=== PATIENT | male | born 1960 | race Caucasian/White ===

== ENCOUNTER → 2020-09-11 08:32 | Outpatient (BNVA) | payer BC, SELFPAY | PROVIDERS: PCP Orthopaedic Surgery; Referring Provider Orthopaedic Surgery; Visit Provider Internal Medicine Gastroenterology | DX: Z76.89 Persons encountering health services in other specified circumstances (principal) ==

== ENCOUNTER 2024-03-13 09:00 | Outpatient (AMB) | payer MEDICARE, MEDICAID, SELFPAY ==
[2024-03-13 09:02] VITALS: BP 112/64; PULSE 66; O2SAT 98; BMI 32.3
--- NOTE | 2024-03-13 09:02 | HO.NEPHOV ---
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 Roberto Carlos is a pleasant 64-year-old man referred for elevated serum creatinine. In 02/19/2024 serum creatinine was 1.4 mg/dL with a EGFR of 51 mL/minute. In the past serum creatinine was 1.3 mg/dL in December and in 2022 serum creatinine was 0.8 mg/dL. There has been no new medications added in the recent times. He has been on irbesartan 75 mg for the last several years. Does not take any NSAIDs. Overall blood pressure has been well controlled. No hypotensive episodes He has a history of diabetes mellitus and recent A1c was 7.8%. He is currently on Januvia metformin and Jardiance. Recent urine studies did not reveal any significant proteinuria. He has no urinary symptoms other than increased frequency. No polyuria polydipsia. He has been on tamsulosin for quite some time but does not have a history of BPH. If he has a history of coronary artery disease and underwent a stent placement back in 2004. In 2020 he had a defibrillator inserted. He has a history of smoking more than 1 pack per day. He quit smoking in 2004. Currently smoking very few cigarettes. No history of any alcohol abuse. There is a strong family history of coronary disease. No family history of kidney disease. [facility] Surgical History Hx of heart artery stent Hx of neck surgery Hx of foot surgery Hx of endoscopy History of colonoscopy Family History Father Hx of cancer of lung History of heart attack Mother History of cancer Brother Hx of type 1 diabetes mellitus Hx of bladder cancer History of prostate cancer Sister Hx of breast cancer Sister History of lung or bronchial cancer Social History Alcohol intake: current Alcohol intake frequency: a few times a month Cigarettes Per Day: 10 Review of Systems Const Denies fever(s) and Denies weight loss Card Denies chest pain Resp Denies cough and Denies hemoptysis GI Denies abdominal pain, Denies diarrhea and Denies nausea Musc Denies back pain Neuro Denies focal weakness Physical Exam Vital Signs: Last Vital Signs Pulse 66 03/13/24 09:02 BP 112/64 03/13/24 09:02 Pulse Ox 98 03/13/24 09:02 Oxygen Delivery Method Room Air 03/13/24 09:02 BMI result Body Mass Index 32.3 Const General: comfortable; No acute distress Orientation/consciousness: patient oriented x3 Eyes General: appearance normal, both eyes and all related structures Visual Colindres: normal visual colindres by confrontation Neck Neck: Yes supple and Yes no JVD Resp Effort & Inspection: normal respiratory effort and respiratory effort not decreased Auscultation: rhonchi Cardio Palpation: no palpable S3 and no palpable S4 Heart sounds: no rubs GI Inspection: Yes normal to inspection Palpation (GI): Soft to palpation Percussion: Yes normal to percussion Auscultation: normal bowel sounds General: Yes no CVA tenderness Back/Spine/Pelvis Back: no CVA tenderness Skin General skin exam: no petechiae and no purpura Neuro General: patient oriented x3 and no focal motor deficits Extrem General: No clubbing and No edema Results Reviewed Results Reviewed: February 29, 2024. Sodium 139 potassium 4.7 BUN 23 creatinine 1.41 EGFR 56 mL/minute Urine microalbumin creatinine ratio of 11 Nephrology Results: No Data to Display Assessment & Plan Assessment & Plan (1) CKD (chronic kidney disease): Code(s): N18.9 - Chronic kidney disease, unspecified Category: Medical Plan . Roberto Carlos is a 60-year-old man with a history of longstanding diabetes mellitus and coronary disease with a recent elevation serum creatinine. Recent serum creatinine has been around 0.8-0.9 mg/dL up until 2022. Over the last few months serum creatinine is bumped up to 1.4 mg/dL. He has no significant proteinuria. Recent urine sediments were bland. Differential diagnosis would include hypoperfusion. Obstructive uropathy should be ruled out. No reason to believe that he has any active glomerulonephritis or interstitial disease. Plan Keep current medications for now. Agree with Jardiance for cardiorenal protection. Along with low-dose ARB. Check 24 urine collection for creatinine clearance. Check renal ultrasonogram. Encouraged to stay on low-sodium diet and increase p.o. fluid intake. Continue to avoid nephrotoxic agents including NSAIDs. He will return to the office once the baseline workup is completed. Orders: Orders Creatinine, 24 Hr Group Today N18.9 - Chronic kidney disease, unspecified Creatinine Clearance Urine 24U Today N18.9 - Chronic kidney disease, unspecified Sodium Urine Random 2 Weeks N18.9 - Chronic kidney disease, unspecified Comprehensive Met. Panel Today N18.9 - Chronic kidney disease, unspecified Creatinine Urine Today N18.9 - Chronic kidney disease, unspecified Total Protein Urine Random Today N18.9 - Chronic kidney disease, unspecified UA and rflx microscopic Today N18.9 - Chronic kidney disease, unspecified US renal BI Today N18.9 - Chronic kidney disease, unspecified Coding Level of Care Code New Pt Level 4 (34508) Diagnoses CKD (chronic kidney disease) N18.9
== END 2024-03-13 09:43 | disposition home or self-care (01) ==
PROVIDERS: PCP Nurse Practitioner Family; Referring Provider Nurse Practitioner Family; Visit Provider Internal Medicine Hypertension Specialist
DX: N18.9 Chronic kidney disease, unspecified (principal)
CPT/HCPCS: 99204

== ENCOUNTER → 2024-03-13 09:00 | Outpatient (BNVA) | payer MEDICARE, MEDICAID, SELFPAY | PROVIDERS: PCP Nurse Practitioner Family; Referring Provider Nurse Practitioner Family; Visit Provider Internal Medicine Hypertension Specialist | DX: N18.9 Chronic kidney disease, unspecified (principal) | CPT/HCPCS: 99202 ==

== ENCOUNTER 2024-03-18 12:15 | Outpatient (REF) | payer MEDICARE, MEDICAID, SELFPAY ==
--- NOTE | ~2024-03-18 | US_ITS ---
EXAMINATION: US RETROPERITONEAL LIMITED (RENAL ONLY) CLINICAL INFORMATION: Chronic kidney disease, unspecified. COMPARISON: None available. TECHNIQUE: Real-time imaging of the kidneys. FINDINGS: RIGHT KIDNEY: 11.6 x 5.3 x 5.1 cm (SAG x AP x TRV). The kidney is normal in size, contour, and echogenicity. Renal cortical thickness is normal. No renal calculi or focal parenchymal lesions. There is moderate to severe hydronephrosis, not associated with nephrolithiasis. Partially visualized proximal ureter is dilated to also, measured 1.2 cm distally. LEFT KIDNEY: 11.0 x 6.8 x 6.2 cm (SAG x AP x TRV). The kidney is normal in size, contour, and echogenicity. Renal cortical thickness is normal. No renal calculi or focal parenchymal lesions. There is mild to moderate hydronephrosis with dilated ureter, measured 1.5 cm distally ADDITIONAL FINDINGS: Urinary bladder is overdistended with jets visualized bilaterally and small calculi in the dependent portion of the bladder US/US renal BI IMPRESSION: Bilateral hydroureteronephrosis and over distended urinary bladder with urolithiasis
== END 2024-03-18 12:16 | disposition home or self-care (01) ==
LOC: HO.US 12:15
PROVIDERS: PCP Nurse Practitioner Family; Visit Provider Internal Medicine Hypertension Specialist
DX: N18.9 Chronic kidney disease, unspecified (principal)
CPT/HCPCS: 76775

== ENCOUNTER 2024-03-20 10:06 | Outpatient (REF) | payer MEDICARE, MEDICAID, SELFPAY ==
[2024-03-20 18:20] LABS: Appearance Urine Clear; Color Urine Yellow; Glucose Urine UA >=1000 mg/dL (Negative); Leukocyte Esterase Urine Negative (Negative); Nitrite Urine Negative (Negative); PH 5.5 (5.0-9.0); UMIC TRIGGER UA YES; Urine Blood Negative (Negative); Urine Ketones Negative (Negative); Urine Protein Negative (Neg-Trace)
[2024-03-20 18:23] LABS: Bacteria Urine None Seen (None Seen); Hyaline Casts Urine 0-2 /LPF (0-2); RBC Urine 0-2 /HPF (0-2); Squamous Epithelial Cell Urine 0-2 /HPF (0-2); WBC Urine 0-5 /HPF (0-5)
[2024-03-20 18:31] LABS: Alanine Aminotransferase 21 U/L (0-40); Albumin Level 4.4 g/dL (3.5-5.0); Alkaline Phosphatase 137 U/L (39-117); Anion Gap 11 (12-20); Aspartate Amino Transferase 15 U/L (5-37); Bilirubin Total 0.4 mg/dL (0.0-1.0); Blood Urea Nitrogen 25 mg/dL (9-16); Calcium 9.7 mg/dL (8.4-10.2); Carbon Dioxide 26 mmol/L (22-29); Chloride 108 mmol/L (96-108); Estimated Glomerular Filt Rate 46; Glucose Random 205 mg/dL (60-115); Potassium 4.2 mmol/L (3.3-5.1); Sodium 141 mmol/L (135-145)
[2024-03-20 18:59] LABS: Creatinine Urine 36.81 mg/dL; Total Protein Urine Random < 7 mg/dL (<12)
[2024-03-20 19:42] LABS: Creatinine, mg/dL 39.11
[2024-03-20 19:53] LABS: Creatinine, 24Hr Urine 1.2 G/Day (1.0-2.0); Total Volume 24 Hour Urine 3100 mL
[2024-03-20 19:54] LABS: Creatinine (CrCl) 1.53 mg/dL (0.5-1.4)
== END 2024-03-20 10:07 | disposition home or self-care (01) ==
LOC: HO.HKASLDS 10:06
PROVIDERS: Visit Provider Internal Medicine Hypertension Specialist
DX: N18.9 Chronic kidney disease, unspecified (principal)
CPT/HCPCS: 36415; 80053; 81001; 82570; 82575; 84156; 84300

== ENCOUNTER 2024-04-03 08:35 | Outpatient (AMB) | payer MEDICARE, MEDICAID, SELFPAY ==
[2024-04-03 08:37] VITALS: BP 152/80; PULSE 68; O2SAT 98; BMI 32.6
--- NOTE | 2024-04-03 08:37 | HO.NEPHOV ---
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 Roberto Carlos is a pleasant 64-year-old man referred for elevated serum creatinine. In 02/19/2024 serum creatinine was 1.4 mg/dL with a EGFR of 51 mL/minute. In the past serum creatinine was 1.3 mg/dL in December and in 2022 serum creatinine was 0.8 mg/dL. There has been no new medications added in the recent times. He has been on irbesartan 75 mg for the last several years. Does not take any NSAIDs. Overall blood pressure has been well controlled. No hypotensive episodes He has a history of diabetes mellitus and recent A1c was 7.8%. He is currently on Januvia metformin and Jardiance. Recent urine studies did not reveal any significant proteinuria. He has no urinary symptoms other than increased frequency. No polyuria polydipsia. He has been on tamsulosin for quite some time but does not have a history of BPH. If he has a history of coronary artery disease and underwent a stent placement back in 2004. In 2020 he had a defibrillator inserted. He has a history of smoking more than 1 pack per day. He quit smoking in 2004. Currently smoking very few cigarettes. No history of any alcohol abuse. There is a strong family history of coronary disease. No family history of kidney disease. 04/03/2024. Roberto Carlos is here for follow-up. Underwent a workup as outlined. Recent creatinine was 1.56. Twenty-four urine collection did not reveal any significant proteinuria. Renal ultrasonogram was done It is not reported yet. I reviewed the images. He is having increased urinary frequency and says that this has been going on for a year. PFSH Surgical History Hx of heart artery stent Hx of neck surgery Hx of foot surgery Hx of endoscopy History of colonoscopy Family History Father Hx of cancer of lung History of heart attack Mother History of cancer Brother Hx of type 1 diabetes mellitus Hx of bladder cancer History of prostate cancer Sister Hx of breast cancer Sister History of lung or bronchial cancer Social History Alcohol intake: current Alcohol intake frequency: a few times a month Cigarettes Per Day: 10 Physical Exam Vital Signs: Last Vital Signs Pulse 68 04/03/24 08:37 BP 152/80 H 04/03/24 08:37 Pulse Ox 98 04/03/24 08:37 Oxygen Delivery Method Room Air 04/03/24 08:37 BMI result Body Mass Index 32.6 Const General: comfortable; No acute distress Orientation/consciousness: patient oriented x3 Eyes General: appearance normal, both eyes and all related structures Visual Magaña: normal visual magaña by confrontation Neck Neck: Yes supple and Yes no JVD Resp Effort & Inspection: normal respiratory effort and respiratory effort not decreased Auscultation: rhonchi Cardio Palpation: no palpable S3 and no palpable S4 Heart sounds: no rubs GI Inspection: Yes normal to inspection Palpation (GI): Soft to palpation Percussion: Yes normal to percussion Auscultation: normal bowel sounds General: Yes no CVA tenderness Back/Spine/Pelvis Back: no CVA tenderness Skin General skin exam: no petechiae and no purpura Neuro General: patient oriented x3 and no focal motor deficits Extrem General: No clubbing and No edema Results Reviewed Nephrology Results: Sodium 141 mmol/L (135-145) 03/20/24 Potassium 4.2 mmol/L (3.3-5.1) 03/20/24 Chloride 108 mmol/L (96-108) 03/20/24 Carbon Dioxide 26 mmol/L (22-29) 03/20/24 BUN 25 mg/dL (9-16) H 03/20/24 Creatinine 1.53 mg/dL (0.5-1.4) H 03/20/24 Calcium 9.7 mg/dL (8.4-10.2) 03/20/24 Urine Protein Negative mg/dL (Neg-Trace) 03/20/24 Urine Creatinine 36.81 mg/dL 03/20/24 Renal US 03/18/24 Assessment & Plan Assessment & Plan (1) CKD (chronic kidney disease): Code(s): N18.9 - Chronic kidney disease, unspecified Category: Medical (2) Hydronephrosis: Code(s): N13.30 - Unspecified hydronephrosis Category: Medical Plan . Roberto Carlos is a 60-year-old man with a history of longstanding diabetes mellitus and coronary disease with a recent elevation serum creatinine. Recent serum creatinine has been around 0.8-0.9 mg/dL up until 2022. Over the last few months serum creatinine is bumped up to 1.4 mg/dL. He has no significant proteinuria. Twenty-four urine collection did not reveal any proteinuria Recent urine sediments were bland. Renal ultrasonogram reveals evidence of hydronephrosis. He has underlying obstructive uropathy. No reason to believe that he has any active glomerulonephritis or interstitial disease. Plan Keep current medications for now. Agree with Jardiance for cardiorenal protection. Along with low-dose ARB. Referred to Urology [facility] for further evaluation. Continue tamsulosin Encouraged to stay on low-sodium diet and increase p.o. fluid intake. Continue to avoid nephrotoxic agents including NSAIDs. Orders: Orders Basic Metabolic Panel 6 Weeks N13.30 - Unspecified hydronephrosis, N18.9 - Chronic kidney disease, unspecified Referrals Urology Referral N13.30 - Unspecified hydronephrosis, R31.9 - Hematuria, unspecified Coding Level of Care Code Est Pt Level 4 (55706) Diagnoses CKD (chronic kidney disease) N18.9 Hydronephrosis N13.30
[2024-04-03 10:38] VITALS: BP 134/70
== END 2024-04-03 11:08 | disposition home or self-care (01) ==
PROVIDERS: PCP Nurse Practitioner Family; Visit Provider Internal Medicine Hypertension Specialist
DX: N18.9 Chronic kidney disease, unspecified (principal); N13.30 Unspecified hydronephrosis
CPT/HCPCS: 99214

== ENCOUNTER → 2024-04-03 08:35 | Outpatient (BNVA) | payer MEDICARE, MEDICAID, SELFPAY | PROVIDERS: PCP Nurse Practitioner Family; Visit Provider Internal Medicine Hypertension Specialist | DX: E11.22 Type 2 diabetes mellitus with diabetic chronic kidney disease (principal); N13.30 Unspecified hydronephrosis; R31.9 Hematuria, unspecified; Z79.84 Long term (current) use of oral hypoglycemic drugs | CPT/HCPCS: 99212 ==

== ENCOUNTER 2024-04-08 13:19 | Outpatient (AMB) | payer MEDICARE, MEDICAID, SELFPAY ==
--- NOTE | 2024-04-08 13:21 | MHC.OFFVIS ---
Intake Visit Reasons: Hematuria Intake Note: Patient is present for hydronephrosis Urology Medication:tamsulosin Antibiotic Allergy:none Blood Thinner:aspirin General Freight Agent Required: No Allergies No Known Allergies [No Known Allergies*] Allergy (Verified 04/08/24 13:22) Medication List - Last Reconciled 04/08/24 by Yossi Yu MD aspirin 81 mg PO DAILY atorvastatin 80 mg PO DAILY diazepam (Valium) 5 mg PO ONCE empagliflozin (Jardiance) 25 mg PO QAM irbesartan 75 mg PO DAILY metformin ER 500 mg PO DAILY metoprolol succinate ER 25 mg PO DAILY tamsulosin 0.4 mg PO DAILY HPI Comments Details: Roberto Carlos is a 64-year-old male who was seen by Nephrology due to rising serum creatinine. He was sent for renal ultrasound resulting in bilateral hydronephrosis. Renal US 03/18/24--B/L hydro, no renal calculi, Urinary bladder is overdistended with jets visualized bilaterally and small calculi in the dependent portion of the bladder. The patient has lower urinary tract symptoms of urinary frequency and nocturia. He states he has had episodes of uncontrolled urinary leakage at night. I have discussed that there are urinary conditions that affect voiding function including bladder spasms, outlet obstruction, as well as hypotonic bladder. He denies dysuria or pain with urination. Comorbidity diabetes, Nicotine dependence. I have discussed further evaluation with CT abdomen and pelvis without IV contrast in follow-up office cystoscopy, PSA screening. Consideration for Urodynamics in the future discussed. [facility] Surgical History Hx of heart artery stent Hx of neck surgery Hx of foot surgery Hx of endoscopy History of colonoscopy Family History Father Hx of cancer of lung History of heart attack Mother History of cancer Brother Hx of type 1 diabetes mellitus Hx of bladder cancer History of prostate cancer Sister Hx of breast cancer Sister History of lung or bronchial cancer Social History Alcohol intake: current Alcohol intake frequency: a few times a month Cigarettes Per Day: 10 Review of Systems Const All systems reviewed & are unremarkable except as noted in HPI and below Reports no additional complaints Eyes Reports no additional complaints ENT Reports no additional complaints Card Reports no additional complaints Resp Reports no additional complaints GI Reports no additional complaints Reports as per HPI Musc Reports no additional complaints Skin/Breast Reports system reviewed and no additional complaints, except as documented Neuro Reports no additional complaints Psych Reports no additional complaints Endo Reports no additional complaints Evan/Lymph Reports no additional complaints Aller/Immun Reports no additional complaints Physical Exam Const General: healthy appearing, no acute distress and well developed Orientation/consciousness: patient oriented x3 HEENT Head: Yes normocephalic and Yes atraumatic Eyes Conjunctivae: conjunctivae normal Neck Neck: Yes normal visual inspection Chest Chest palpation & inspection: normal inspection of the chest Resp Effort & Inspection: normal respiratory effort Cardio Rate: regular rate GI Inspection: Yes normal to inspection Neuro General: patient oriented x3 Psych Appearance: grossly normal Affect: normal affect Results AMB Urinalysis, Automated UA Leukoctes 0 Marsha/uL Last Edit by Shanae Eugene [facility] on 04/08/24 13:33 UA Nitrite Negative Last Edit by Shanae Eugene [facility] on 04/08/24 13:33 UA Urobilinogen 0.2 mg/dL Last Edit by Shanae Eugene [facility] on 04/08/24 13:33 UA Protein 0 mg/dL Last Edit by Shanae Eugene [facility] on 04/08/24 13:33 UA pH 6.0 Last Edit by Shanae Eugene [facility] on 04/08/24 13:33 UA Blood 0 Bam/uL Last Edit by Shanae Eugene [facility] on 04/08/24 13:33 UA Specific [place] 1.010 Last Edit by Shanae Eugene [facility] on 04/08/24 13:33 UA Ketone Negative Last Edit by Shanae Eugene [facility] on 04/08/24 13:33 UA Bilirubin 0 mg/dL Last Edit by Shanae Eugene [facility] on 04/08/24 13:33 UA Glucose 1000 mg/dL Last Edit by Shanae Eugene [facility] on 04/08/24 13:33 Results Reviewed Results Reviewed: Laboratory Last Values Urine pH (Auto) 6.0 04/08/24 13:32 Specific [place] (Auto) 1.010 07/08/24 13:32 Urine Protein (Auto) 0 mg/dL 04/08/24 13:32 Glucose (UA)(Auto) 1000 mg/dL 04/08/24 13:32 Urine Ketones (Auto) Negative 04/08/24 13:32 Urine Blood (Auto) 0 Bam/uL 04/08/24 13:32 Urine Nitrite (Auto) Negative 04/08/24 13:32 Urine Bilirubin (Auto) 0 mg/dL 04/08/24 13:32 Urine Urobilinogen (Auto) 0.2 mg/dL 04/08/24 13:32 Leukocyte Esterase (Auto) 0 Marsha/uL 04/08/24 13:32 Date of Service: 03/18/24 EXAMINATION: US RETROPERITONEAL LIMITED (RENAL ONLY) CLINICAL INFORMATION: Chronic kidney disease, unspecified. COMPARISON: None available. TECHNIQUE: Real-time imaging of the kidneys. FINDINGS: RIGHT KIDNEY: 11.6 x 5.3 x 5.1 cm (SAG x AP x TRV). The kidney is normal in size, contour, and echogenicity. Renal cortical thickness is normal. No renal calculi or focal parenchymal lesions. There is moderate to severe hydronephrosis, not associated with nephrolithiasis. Partially visualized proximal ureter is dilated to also, measured 1.2 cm distally. LEFT KIDNEY: 11.0 x 6.8 x 6.2 cm (SAG x AP x TRV). The kidney is normal in size, contour, and echogenicity. Renal cortical thickness is normal. No renal calculi or focal parenchymal lesions. There is mild to moderate hydronephrosis with dilated ureter, measured 1.5 cm distally ADDITIONAL FINDINGS: Urinary bladder is overdistended with jets visualized bilaterally and small calculi in the dependent portion of the bladder IMPRESSION: Bilateral hydroureteronephrosis and over distended urinary bladder with urolithiasis Assessment & Plan Assessment & Plan (1) Hydronephrosis: Code(s): N13.30 - Unspecified hydronephrosis Category: Medical (2) BPH loc w urin obs/LUTS: Code(s): N40.1 - Benign prostatic hyperplasia with lower urinary tract symptoms Category: Medical (3) Nicotine dependence: Code(s): F17.200 - Nicotine dependence, unspecified, uncomplicated Category: Medical (4) Urinary incontinence: Code(s): R32 - Unspecified urinary incontinence Category: Medical Plan CT abd/pelvis wo IV contrast, fu cysto, PSA screening. Orders: Orders PSA,Total (Free>4and<10) Today N40.1 - Benign prostatic hyperplasia with lower urinary tract symptoms CT abdomen pelvis wo IV con Today N13.30 - Unspecified hydronephrosis AMB Urinalysis Automated Today Z13.9 - Encounter for screening, unspecified Medications: New diazepam (Valium) 5 mg PO ONCE 1 tab 0RF take 30 min to 1 hour prior to office procedure Patient Instructions: The patient had an opportunity to ask questions regarding treatment plan. The patient expressed understanding and agreement with the above treatment plan. The patient is aware they should contact our office by phone for worsening of their current condition or the appearance of new symptoms. Compliance is encouraged with any medications and followup testing that is ordered. It is a privilege to be allowed the opportunity to participate in the urologic care of your patient. If you have any questions or concerns regarding treatment for the above conditions please do not hesitate to contact me. The office telephone contact is [phone]. This note is constructed in part using voice recognition software. While every effort has been made to ensure accuracy story editor errors may have been included. Yours sincerely, Yossi Yu MD Coding Level of Care Code New Pt Level 4 (39845) Diagnoses Hydronephrosis N13.30 BPH loc w urin obs/LUTS N40.1 Nicotine dependence F17.200 Urinary incontinence R32
== END 2024-04-08 14:16 | disposition home or self-care (01) ==
PROVIDERS: PCP Nurse Practitioner Family; Visit Provider Urology
DX: N13.30 Unspecified hydronephrosis (principal); N40.1 Benign prostatic hyperplasia with lower urinary tract symptoms; F17.200 Nicotine dependence, unspecified, uncomplicated; R32 Unspecified urinary incontinence; Z13.9 Encounter for screening, unspecified
CPT/HCPCS: 99204

== ENCOUNTER → 2024-04-08 13:19 | Outpatient (BNVA) | payer MEDICARE, MEDICAID, SELFPAY | PROVIDERS: PCP Nurse Practitioner Family; Visit Provider Urology | DX: N13.30 Unspecified hydronephrosis (principal); N40.1 Benign prostatic hyperplasia with lower urinary tract symptoms; N13.8 Other obstructive and reflux uropathy; F17.210 Nicotine dependence, cigarettes, uncomplicated | CPT/HCPCS: 81003; 99202 ==

== ENCOUNTER 2024-05-20 16:12 | Outpatient (REF) | payer MEDICARE, MEDICAID, SELFPAY ==
--- NOTE | ~2024-05-20 | CT_ITS ---
EXAMINATION: CT ABDOMEN AND PELVIS WITHOUT IV CONTRAST CLINICAL INFORMATION: Hydronephrosis COMPARISON: Renal ultrasound March 18, 2024 TECHNIQUE: Multiple axial images were obtained from the superior aspect of the liver through the pubic symphysis without intravenous contrast. Images were evaluated on independent dedicated 3-D workstation and 3-D images were reconstructed with concurrent radiologist supervision and subsequently interpreted. Oral contrast was not administered. This CT examination was performed using dose optimization techniques as appropriate, variously including the following: *Automated exposure control *Adjustment of mA and/or kV according to patient size (this includes techniques or standardized protocols for targeted exams where dose is matched to indication/reason for exam; i.e. extremities or head) *Use of iterative reconstruction technique DLP: 546 mGy-cm FINDINGS: LUNG BASES: The visualized lung bases are clear. CARDIOMEDIASTINUM: The visualized heart is normal in size without pericardial effusion. No coronary artery calcification. LIVER: Homogeneous in attenuation. Normal in size. GALLBLADDER: Collapsed. BILIARY SYSTEM: No intrahepatic or extrahepatic biliary dilation. PANCREAS: Homogeneous in attenuation. SPLEEN: Normal in size. GENITOURINARY: No contour deforming masses. No perinephric fluid collection. No renal calculi. Bilateral moderate hydroureteronephrosis with severely fluid filled and distended urinary bladder. ADRENAL GLANDS: Unremarkable. REPRODUCTIVE: Prostatomegaly measuring 5.5 x 5.1 x 6.5 cm. GASTROINTESTINAL: The visualized alimentary tract is normal in course. Diverticular disease. No evidence of obstruction. APPENDIX: The appendix is seen in its entirety and is unremarkable. PERITONEUM: No pneumoperitoneum. No intra-abdominal fluid collection. VASCULATURE: No abdominal aortic aneurysm. LYMPH NODES: No pathologically enlarged abdominal or pelvic lymph nodes. SOFT TISSUES/MUSCULOSKELETAL: There is no acute fracture or significant focal osseous lesion. CT/CT abdomen pelvis wo IV con IMPRESSION: Moderate bilateral hydroureteronephrosis secondary to severely fluid filled distended urinary bladder. These findings are concerning for bladder outlet obstruction the setting of prostatomegaly. Fleischner guidelines were followed. Electronically signed by: Denzel oMrton DO 06/03/2024 11:19 PM EDT
== END 2024-05-20 16:13 | disposition home or self-care (01) ==
LOC: HO.CT 16:12
PROVIDERS: PCP Nurse Practitioner Family; Visit Provider Urology
DX: N13.30 Unspecified hydronephrosis (principal)
CPT/HCPCS: 74176

== ENCOUNTER 2024-05-24 10:35 | Outpatient (AMB) | payer MEDICARE, MEDICAID, SELFPAY ==
[2024-05-24 10:37] VITALS: BP 130/72; PULSE 89; O2SAT 89; BMI 31.8
--- NOTE | 2024-05-24 10:37 | HO.NEPHOV ---
Vital Signs 05/24/24 10:37 Height 5 ft 5 in Weight 191 lb BMI 31.8 BP 130/72 Blood Pressure Location Lt brachial Position Sitting Pulse 89 Pulse Source Pulse Oximeter Pulse Oximetry (%) 89 L Oxygen Delivery Method Room Air Intake Visit Reasons: 7-8 wk follow up- Conf Design Quality Engineer Required: No Accompanied by: Spouse Allergies No Known Allergies [No Known Allergies*] Allergy (Verified 05/24/24 10:39) HPI Comments Details: . Roberto Carlos is a pleasant 64-year-old man referred for elevated serum creatinine. In 02/19/2024 serum creatinine was 1.4 mg/dL with a EGFR of 51 mL/minute. In the past serum creatinine was 1.3 mg/dL in December and in 2022 serum creatinine was 0.8 mg/dL. There has been no new medications added in the recent times. He has been on irbesartan 75 mg for the last several years. Does not take any NSAIDs. Overall blood pressure has been well controlled. No hypotensive episodes He has a history of diabetes mellitus and recent A1c was 7.8%. He is currently on Januvia metformin and Jardiance. Recent urine studies did not reveal any significant proteinuria. He has no urinary symptoms other than increased frequency. No polyuria polydipsia. He has been on tamsulosin for quite some time but does not have a history of BPH. If he has a history of coronary artery disease and underwent a stent placement back in 2004. In 2020 he had a defibrillator inserted. He has a history of smoking more than 1 pack per day. He quit smoking in 2004. Currently smoking very few cigarettes. No history of any alcohol abuse. There is a strong family history of coronary disease. No family history of kidney disease. 04/03/2024. Roberto Carlos is here for follow-up. Underwent a workup as outlined. Recent creatinine was 1.56. Twenty-four urine collection did not reveal any significant proteinuria. Renal ultrasonogram was done It is not reported yet. I reviewed the images. He is having increased urinary frequency and says that this has been going on for a year. 05/23/24 Seen by for bradley hydro Underwent CT scan Waiting for Cysto No nichols catheter yet ? [facility] Surgical History Hx of heart artery stent Hx of neck surgery Hx of foot surgery Hx of endoscopy History of colonoscopy Family History Father Hx of cancer of lung History of heart attack Mother History of cancer Brother Hx of type 1 diabetes mellitus Hx of bladder cancer History of prostate cancer Sister Hx of breast cancer Sister History of lung or bronchial cancer Social History Alcohol intake: current Alcohol intake frequency: a few times a month Cigarettes Per Day: 10 Physical Exam Vital Signs: Last Vital Signs Pulse 89 05/24/24 10:37 BP 130/72 05/24/24 10:37 Pulse Ox 89 L 05/24/24 10:37 Oxygen Delivery Method Room Air 05/24/24 10:37 BMI result Body Mass Index 31.8 Const General: comfortable; No acute distress Orientation/consciousness: patient oriented x3 Eyes General: appearance normal, both eyes and all related structures Visual Colindres: normal visual colindres by confrontation Neck Neck: Yes supple and Yes no JVD Resp Effort & Inspection: normal respiratory effort and respiratory effort not decreased Auscultation: rhonchi Cardio Palpation: no palpable S3 and no palpable S4 Heart sounds: no rubs GI Inspection: Yes normal to inspection Palpation (GI): Soft to palpation Percussion: Yes normal to percussion Auscultation: normal bowel sounds General: Yes no CVA tenderness Back/Spine/Pelvis Back: no CVA tenderness Skin General skin exam: no petechiae and no purpura Neuro General: patient oriented x3 and no focal motor deficits Extrem General: No clubbing and No edema Results Reviewed Nephrology Results: Sodium 141 mmol/L (135-145) 03/20/24 Potassium 4.2 mmol/L (3.3-5.1) 03/20/24 Chloride 108 mmol/L (96-108) 03/20/24 Carbon Dioxide 26 mmol/L (22-29) 03/20/24 BUN 25 mg/dL (9-16) H 03/20/24 Creatinine 1.53 mg/dL (0.5-1.4) H 03/20/24 Calcium 9.7 mg/dL (8.4-10.2) 03/20/24 Urine Protein Negative mg/dL (Neg-Trace) 03/20/24 Urine Creatinine 36.81 mg/dL 03/20/24 Renal US 03/18/24 Assessment & Plan Assessment & Plan (1) CKD (chronic kidney disease): Code(s): N18.9 - Chronic kidney disease, unspecified Category: Medical (2) Hydronephrosis: Code(s): N13.30 - Unspecified hydronephrosis Category: Medical Plan . Roberto Carlos is a 60-year-old man with a history of longstanding diabetes mellitus and coronary disease with a recent elevation serum creatinine. Recent serum creatinine has been around 0.8-0.9 mg/dL up until 2022. Over the last few months serum creatinine is bumped up to 1.4 mg/dL. He has no significant proteinuria. Twenty-four urine collection did not reveal any proteinuria Recent urine sediments were bland. Renal ultrasonogram reveals evidence of hydronephrosis. He has underlying obstructive uropathy. No reason to believe that he has any active glomerulonephritis or interstitial disease. Plan Keep current medications for now. Agree with Jardiance for cardiorenal protection. Along with low-dose ARB. Await Urology evaluation /Cysto CT done and results pending . Continue tamsulosin Encouraged to stay on low-sodium diet and increase p.o. fluid intake. Continue to avoid nephrotoxic agents including NSAIDs. Coding Level of Care Code Est Pt Level 4 (37332) Diagnoses CKD (chronic kidney disease) N18.9 Hydronephrosis N13.30
== END 2024-05-24 11:01 | disposition home or self-care (01) ==
PROVIDERS: PCP Nurse Practitioner Family; Visit Provider Internal Medicine Hypertension Specialist
DX: N18.9 Chronic kidney disease, unspecified (principal); N13.30 Unspecified hydronephrosis
CPT/HCPCS: 99214

== ENCOUNTER → 2024-05-24 10:35 | Outpatient (BNVA) | payer MEDICARE, MEDICAID, SELFPAY | PROVIDERS: PCP Nurse Practitioner Family; Visit Provider Internal Medicine Hypertension Specialist | DX: N18.9 Chronic kidney disease, unspecified (principal); N13.30 Unspecified hydronephrosis | CPT/HCPCS: 99212 ==

== ENCOUNTER 2024-05-29 15:07 | Outpatient (AMB) | payer MEDICARE, MEDICAID, SELFPAY ==
--- NOTE | 2024-05-29 15:22 | MHC.OFFVIS ---
Intake Visit Reasons: discuss catheter Intake Note: Patient is present for discuss Cystoscopy to be done in OR Urology Medication:none Antibiotic Allergy:none Blood Thinner:aspirin Patient is currently on Trulicity Conduit Bender Required: No Real Estate Operations Manager: Real Estate Operations Manager Present Accompanied by: Spouse Allergies No Known Allergies [No Known Allergies*] Allergy (Verified 05/29/24 15:23) HPI Comments Details: 05/29/28--Roberto Carlos is here in fu post CTAP-05/20/24--I have discussed results, concerning for bilateral hydro and distended bladder, likely contributing to renal dysfunction. The patient refuses a nichols. He declines office cystoscopy. Will sched outpt cystoscopy, discussed that nichols can be placed at that time if patient agrees to it. 04/08/24--Roberto Carlos is a 64-year-old male who was seen by Nephrology due to rising serum creatinine. He was sent for renal ultrasound resulting in bilateral hydronephrosis. Renal US 03/18/24--B/L hydro, no renal calculi, Urinary bladder is overdistended with jets visualized bilaterally and small calculi in the dependent portion of the bladder. The patient has lower urinary tract symptoms of urinary frequency and nocturia. He states he has had episodes of uncontrolled urinary leakage at night. I have discussed that there are urinary conditions that affect voiding function including bladder spasms, outlet obstruction, as well as hypotonic bladder. He denies dysuria or pain with urination. Comorbidity diabetes, Nicotine dependence. I have discussed further evaluation with CT abdomen and pelvis without IV contrast in follow-up office cystoscopy, PSA screening. Consideration for Urodynamics in the future discussed. [facility] Medical History (Updated 07/01/24 @ 14:03 by Yossi Yu MD) Post covid-19 condition, unspecified Tobacco abuse Diabetes Obese Ischemic cardiomyopathy Hyperlipidemia associated with type 2 diabetes mellitus Ventricular tachycardia Myocardial infarction CAD (coronary artery disease) COPD (chronic obstructive pulmonary disease) Sleep apnea Surgical History Hx of heart artery stent Hx of neck surgery Hx of foot surgery Hx of endoscopy History of colonoscopy Family History Father Hx of cancer of lung History of heart attack Mother History of cancer Brother Hx of type 1 diabetes mellitus Hx of bladder cancer History of prostate cancer Sister Hx of breast cancer Sister History of lung or bronchial cancer Social History Alcohol intake: current Alcohol intake frequency: a few times a month Cigarettes Per Day: 10 Results Reviewed Results Reviewed: Date of Service: 05/20/24 CT ABDOMEN AND PELVIS WITHOUT IV CONTRAST CLINICAL INFORMATION: Hydronephrosis COMPARISON: Renal ultrasound March 18, 2024 TECHNIQUE: Multiple axial images were obtained from the superior aspect of the liver through the pubic symphysis without intravenous contrast. Images were evaluated on independent dedicated 3-D workstation and 3-D images were reconstructed with concurrent radiologist supervision and subsequently interpreted. Oral contrast was not administered. This CT examination was performed using dose optimization techniques as appropriate, variously including the following: *Automated exposure control *Adjustment of mA and/or kV according to patient size (this includes techniques or standardized protocols for targeted exams where dose is matched to indication/reason for exam; i.e. extremities or head) *Use of iterative reconstruction technique DLP: 546 mGy-cm FINDINGS: LUNG BASES: The visualized lung bases are clear. CARDIOMEDIASTINUM: The visualized heart is normal in size without pericardial effusion. No coronary artery calcification. LIVER: Homogeneous in attenuation. Normal in size. GALLBLADDER: Collapsed. BILIARY SYSTEM: No intrahepatic or extrahepatic biliary dilation. PANCREAS: Homogeneous in attenuation. SPLEEN: Normal in size. GENITOURINARY: No contour deforming masses. No perinephric fluid collection. No renal calculi. Bilateral moderate hydroureteronephrosis with severely fluid filled and distended urinary bladder. ADRENAL GLANDS: Unremarkable. REPRODUCTIVE: Prostatomegaly measuring 5.5 x 5.1 x 6.5 cm. GASTROINTESTINAL: The visualized alimentary tract is normal in course. Diverticular disease. No evidence of obstruction. APPENDIX: The appendix is seen in its entirety and is unremarkable. PERITONEUM: No pneumoperitoneum. No intra-abdominal fluid collection. VASCULATURE: No abdominal aortic aneurysm. LYMPH NODES: No pathologically enlarged abdominal or pelvic lymph nodes. SOFT TISSUES/MUSCULOSKELETAL: There is no acute fracture or significant focal osseous lesion. IMPRESSION: Moderate bilateral hydroureteronephrosis secondary to severely fluid filled distended urinary bladder. These findings are concerning for bladder outlet obstruction the setting of prostatomegaly. Assessment & Plan Assessment & Plan (1) Hydronephrosis: Code(s): N13.30 - Unspecified hydronephrosis Category: Medical (2) BPH loc w urin obs/LUTS: Code(s): N40.1 - Benign prostatic hyperplasia with lower urinary tract symptoms Category: Medical (3) Nicotine dependence: Code(s): F17.200 - Nicotine dependence, unspecified, uncomplicated Category: Medical (4) Incomplete bladder emptying: Code(s): R33.9 - Retention of urine, unspecified Category: Medical (5) Urinary retention: Code(s): R33.9 - Retention of urine, unspecified Category: Medical Plan Outpatient cystoscopy, possible catheter placement Patient Instructions: The patient had an opportunity to ask questions regarding treatment plan. The patient expressed understanding and agreement with the above treatment plan. The patient is aware they should contact our office by phone for worsening of their current condition or the appearance of new symptoms. Compliance is encouraged with any medications and followup testing that is ordered. It is a privilege to be allowed the opportunity to participate in the urologic care of your patient. If you have any questions or concerns regarding treatment for the above conditions please do not hesitate to contact me. The office telephone contact is [phone]. This note is constructed in part using voice recognition software. While every effort has been made to ensure accuracy retirement manager errors may have been included. Yours sincerely, Yossi Yu MD Coding Level of Care Code Est Pt Level 4 (13443) Diagnoses Hydronephrosis N13.30 BPH loc w urin obs/LUTS N40.1 Nicotine dependence F17.200 Incomplete bladder emptying R33.9 Urinary retention R33.9
== END 2024-05-29 16:21 | disposition home or self-care (01) ==
PROVIDERS: PCP Nurse Practitioner Family; Visit Provider Urology
DX: N13.30 Unspecified hydronephrosis (principal); N40.1 Benign prostatic hyperplasia with lower urinary tract symptoms; F17.200 Nicotine dependence, unspecified, uncomplicated; R33.9 Retention of urine, unspecified
CPT/HCPCS: 99214

== ENCOUNTER → 2024-05-29 15:07 | Outpatient (BNVA) | payer MEDICARE, MEDICAID, SELFPAY | PROVIDERS: PCP Nurse Practitioner Family; Visit Provider Urology | DX: N32.89 Other specified disorders of bladder (principal); Z71.89 Other specified counseling | CPT/HCPCS: 99212 ==

== ENCOUNTER 2024-07-02 08:50 | Day surgery (SDC) | payer MEDICARE, MEDICAID, SELFPAY ==
[2024-06-28 11:55] VITALS: BMI 32.3
--- NOTE | 2024-07-01 12:22 | P.CONAN_ITS ---
Documented by User: Denita Aviles NP 07/01/24 12:43 HPI - Anesthesia Eval Consult details Narrative: 64yo M for Cystoscopy with possible suprapubic tube placement Follows [facility] cardiology and ok'd to hold asa for cysto CAD s/p stent 2010 AICD in situ (2020 and 2021 - [place] with COVID requiring shock. Severely reduced EF then, but has since recovered to 40-45%) (Requested last interrogation) Anesthesia Pre-Procedure Meds Is the patient on any of the following meds?: GLP1/DPP4 and SGLT2 Inhib PMFSH Active Problems Active Problems: All Active Problems Urinary incontinence (Acute) Nicotine dependence (Acute) BPH loc w urin obs/LUTS (Acute) Hydronephrosis (Acute) CKD (chronic kidney disease) (Acute) GERD with esophagitis (Acute) Past Medical History Medical History (Updated 07/02/24 @ 10:01 by Cindy Coreas RN) Post covid-19 condition, unspecified Tobacco abuse Diabetes Obese Ischemic cardiomyopathy Hyperlipidemia associated with type 2 diabetes mellitus Ventricular tachycardia Myocardial infarction CAD (coronary artery disease) COPD (chronic obstructive pulmonary disease) Sleep apnea Family History Family History Father Hx of cancer of lung History of heart attack Mother History of cancer Brother Hx of type 1 diabetes mellitus Hx of bladder cancer History of prostate cancer Sister Hx of breast cancer Sister History of lung or bronchial cancer Surgical History Surgical History (Updated 07/02/24 @ 10:02 by Cindy Coreas RN) History of automatic internal cardiac defibrillator (AICD) Hx of heart artery stent Hx of neck surgery Hx of foot surgery Hx of endoscopy History of colonoscopy Social History Social History Are you a primary healthcare network consultant to a significant other at home: No Do you presently have visiting nurse or other home services: No Alcohol intake: current Alcohol intake frequency: a few times a month Patient Tobacco Use Status: Current everyday Tobacco user Tobacco use type: Cigarette Cigarettes Per Day: 10 Smoked in Last 30 Days: Yes Patient Interested in Nicotine Replacement: No Have you been hit, kicked, punched, or otherwise hurt by someone within the past year? If so, by whom?: No Are you DNR?: No Advance Directives: No Advance Directives Information Provided: Yes Nutrition Risks: No Nutritional Risk Poor oral hygiene: No Meds Allergies Allergy/AdvReac Type Severity Reaction Status Date / Time No Known Allergies Allergy Verified 07/02/24 09:49 [No Known Allergies*] Home Medications ?Medication ?Instructions ?Recorded ?Confirmed ?Last Taken ?Type aspirin 81 mg tablet,delayed 81 mg PO BEDTIME 03/13/24 06/28/24 06/22/24 History release atorvastatin 80 mg tablet 80 mg PO BEDTIME 03/13/24 06/28/24 Unknown History empagliflozin 25 mg tablet 25 mg PO QAM 03/13/24 06/28/24 06/28/24 History (Jardiance) irbesartan 75 mg tablet 75 mg PO BEDTIME 03/13/24 06/28/24 Unknown History metformin 500 mg tablet,extended 500 mg PO DAILY 03/13/24 06/28/24 Unknown History release 24 hr metoprolol succinate 25 mg 25 mg PO BEDTIME 03/13/24 06/28/24 Unknown History tablet,extended release 24 hr dulaglutide 4.5 mg/0.5 mL 4.5 mg subcut QWEEK 05/24/24 06/28/24 06/23/24 History subcutaneous pen injector (Trulicity) Exam Height,Weight and Vital Signs: Height 5 ft 5 in Weight 87.997 kg Pertinent Lab Results Pertinent Lab Results: Laboratory Tests 03/20/24 10:10 Sodium 141 Potassium 4.2 Chloride 108 Carbon Dioxide 26 BUN 25 H Creatinine 1.53 H Narrative Narrative: STUDIES FROM [facility] Stress Test IN Myocard Perf SPECT Multi ? 09:35:00 Summary 1. Myocardial perfusion imaging is abnormal after exercise stress testing at fair (reduced) functional capacity. Patient motion is noted on both rest and stress images. There is a large predominantly fixed defect involving the basal to mid inferior wall with associated hypokinesis, consistent with prior infarction. Minimal martin-infarct reversibility or ischemia. There is a small, mild intensity mostly reversible defect, involving the mid to distal anterior wall extending into the apex with normal wall motion, possibly representing myocardial ischemia. 2. LV function is abnormal with an E.F. of 62% at rest and 48% with stress. 3. ECG portion of the stress test is reported separately. Signatures _ _ ? Signed By: Con Grover MD EchoEchocardiogram - Complete ? 14:58:18 Summary The left ventricular size is normal. Left ventricular wall thickness is normal. The LV systolic function is mildly reduced . The left ventricular ejection fraction is 40-45 %. The basal to mid inferior, inferolateral wall is dyskinetic . Grade I, mild diastolic dysfunction with impaired LV relaxation. The left atrium is normal in size. There is an atrial septal aneurysm. There is mild dilation of the aortic root . The ascending aorta is not well visualized. The right ventricle is normal in size and function. A pacer/ICD wire is seen in the right ventricle. Comparison Comparison is made to the study of September 07, 2021. Left ventricular systolic function is improved since previous study. Signature ? Signed By: Lester AMATO, [facility] Carotid Duplex Scan Bilat ? 08:34:23 Summary: Right Side: Mild atherosclerosis that is not hemodynamically significant at 1-49% stenosis in the Internal Carotid Artery, previously 111/43cm/s Antegrade flow in the Vertebral Artery. Multiphasic flow is seen in the Subclavian Artery. Left Side: Mild atherosclerosis that is not hemodynamically significant at 1-49% stenosis in the Internal Carotid Artery, previously 98.1/37.7cm/s Antegrade flow in the Vertebral Artery. Multiphasic flow is seen in the Subclavian Artery. Comparison is made to the previous ultrasound study dated 04/15/19. ? Signed By: Laisha MD, Ford A Cardiac Cath ProcedureCardiac Cath Procedure ? 14:23:00 Conclusions Diagnostic Summary 62-year-old gentleman with mildly positive nuclear stress test involving distal LAD territory, and mild martin-infarct ischemia in RCA territory, mild LV dysfunction, exertional fatigue, shortness of breath, symptoms suspicious for angina. Relatively low left ventricular filling pressures. LVEDP 7-8 mmHg. Normal systemic pressures. There was no gradient across aortic valve by catheter pullback from LV to aorta. Mildly reduced LV function by transthoracic echo. Evidence of inferior wall motion abnormalities due to prior inferior infarct. LVEF 40-45%. Angiographically normal left main, minimal disease in LAD and left circumflex. Very large and dominant RCA with evidence of a stent in the distal RCA. There is 60% in-stent restenosis of the RCA stent. iFR across the lesion was hemodynamically insignificant at 0.96. iFR pullback showed the entire gradient was due to the single lesion in distal RCA. Above findings are consistent with mild ischemic cardiomyopathy with possible chronic dyspnea and fatigue on exertion. No indication for PCI at this time. Diagnostic Recommendations We recommend optimization of neurohormonal therapy for mild ischemic cardiomyopathy and chronic systolic CHF. At this time his volume status is optimized. Continue beta-kaur, ARB and other medications as before. Continue aspirin 81 mg daily indefinitely. He was advised to consider treatment for obstructive sleep apnea. In the past he did not tolerate CPAP machine. Follow-up in cardiology clinic as a scheduled. [facility] Diagnostic Recommendations: Medical therapy and/or counseling. Signatures ? Signed By: Ebony AMATO, [place] Assessment and Plan Assessment Anesthesia Assessment: Chart Reviewed Documented by User: Francisco J Dos Santos MD 07/02/24 11:03 HPI - Anesthesia Eval Consult details Narrative: 64yo M for Cystoscopy with possible suprapubic tube placement Follows [facility] cardiology and ok'd to hold asa for cysto CAD s/p stent 2010 AICD in situ (2020 and 2021 - [place] with COVID requiring shock. Severely reduced EF then, but has since recovered to 40-45%) (Requested last interrogation) Patient does yardwok, is asymptomatic. Anesthesia Pre-Procedure Meds If yes to any meds - educate patient: Pt education - increased risk of aspiration and/or euvolemic DKA [facility] Past Medical History Medical History (Updated 07/02/24 @ 10:01 by Cindy Coreas RN) Post covid-19 condition, unspecified Tobacco abuse Diabetes Obese Ischemic cardiomyopathy Hyperlipidemia associated with type 2 diabetes mellitus Ventricular tachycardia Myocardial infarction CAD (coronary artery disease) COPD (chronic obstructive pulmonary disease) Sleep apnea Family History Family History Father Hx of cancer of lung History of heart attack Mother History of cancer Brother Hx of type 1 diabetes mellitus Hx of bladder cancer History of prostate cancer Sister Hx of breast cancer Sister History of lung or bronchial cancer Family history of problems with anesthesia: No Surgical History Surgical History (Updated 07/02/24 @ 10:02 by Cindy Coreas RN) History of automatic internal cardiac defibrillator (AICD) Hx of heart artery stent Hx of neck surgery Hx of foot surgery Hx of endoscopy History of colonoscopy History of Problems with Anesthesia: No Social History Social History Are you a primary healthcare network consultant to a significant other at home: No Do you presently have visiting nurse or other home services: No Alcohol intake: current Alcohol intake frequency: a few times a month Patient Tobacco Use Status: Current everyday Tobacco user Tobacco use type: Cigarette Cigarettes Per Day: 10 Smoked in Last 30 Days: Yes Patient Interested in Nicotine Replacement: No Have you been hit, kicked, punched, or otherwise hurt by someone within the past year? If so, by whom?: No Are you DNR?: No Advance Directives: No Advance Directives Information Provided: Yes Nutrition Risks: No Nutritional Risk Poor oral hygiene: No Meds Allergies Allergy/AdvReac Type Severity Reaction Status Date / Time No Known Allergies Allergy Verified 07/02/24 09:49 [No Known Allergies*] Home Medications ?Medication ?Instructions ?Recorded ?Confirmed ?Last Taken ?Type aspirin 81 mg tablet,delayed 81 mg PO BEDTIME 03/13/24 06/28/24 06/22/24 History release atorvastatin 80 mg tablet 80 mg PO BEDTIME 03/13/24 06/28/24 Unknown History empagliflozin 25 mg tablet 25 mg PO QAM 03/13/24 06/28/24 06/28/24 History (Jardiance) irbesartan 75 mg tablet 75 mg PO BEDTIME 03/13/24 06/28/24 Unknown History metformin 500 mg tablet,extended 500 mg PO DAILY 03/13/24 06/28/24 Unknown History release 24 hr metoprolol succinate 25 mg 25 mg PO BEDTIME 03/13/24 06/28/24 Unknown History tablet,extended release 24 hr dulaglutide 4.5 mg/0.5 mL 4.5 mg subcut QWEEK 05/24/24 06/28/24 06/23/24 History subcutaneous pen injector (Trulicity) Exam Narrative Narrative: [facility] Stress Test IN Myocard Perf SPECT Multi ? 09:35:00 Summary 1. Myocardial perfusion imaging is abnormal after exercise stress testing at fair (reduced) functional capacity. Patient motion is noted on both rest and stress images. There is a large predominantly fixed defect involving the basal to mid inferior wall with associated hypokinesis, consistent with prior infarction. Minimal martin-infarct reversibility or ischemia. There is a small, mild intensity mostly reversible defect, involving the mid to distal anterior wall extending into the apex with normal wall motion, possibly representing myocardial ischemia. 2. LV function is abnormal with an E.F. of 62% at rest and 48% with stress. 3. ECG portion of the stress test is reported separately. Signatures _ _ ? Signed By: Con Grover MD EchoEchocardiogram - Complete ? 14:58:18 Summary The left ventricular size is normal. Left ventricular wall thickness is normal. The LV systolic function is mildly reduced . The left ventricular ejection fraction is 40-45 %. The basal to mid inferior, inferolateral wall is dyskinetic . Grade I, mild diastolic dysfunction with impaired LV relaxation. The left atrium is normal in size. There is an atrial septal aneurysm. There is mild dilation of the aortic root . The ascending aorta is not well visualized. The right ventricle is normal in size and function. A pacer/ICD wire is seen in the right ventricle. Comparison Comparison is made to the study of September 07, 2021. Left ventricular systolic function is improved since previous study. Signature ? Signed By: Lester AMATO, [facility] Carotid Duplex Scan Bilat ? 08:34:23 Summary: Right Side: Mild atherosclerosis that is not hemodynamically significant at 1-49% stenosis in the Internal Carotid Artery, previously 111/43cm/s Antegrade flow in the Vertebral Artery. Multiphasic flow is seen in the Subclavian Artery. Left Side: Mild atherosclerosis that is not hemodynamically significant at 1-49% stenosis in the Internal Carotid Artery, previously 98.1/37.7cm/s Antegrade flow in the Vertebral Artery. Multiphasic flow is seen in the Subclavian Artery. Comparison is made to the previous ultrasound study dated 04/15/19. ? Signed By: Ford Interiano MD Cardiac Cath ProcedureCardiac Cath Procedure ? 14:23:00 Conclusions Diagnostic Summary 62-year-old gentleman with mildly positive nuclear stress test involving distal LAD territory, and mild martin-infarct ischemia in RCA territory, mild LV dysfunction, exertional fatigue, shortness of breath, symptoms suspicious for angina. Relatively low left ventricular filling pressures. LVEDP 7-8 mmHg. Normal systemic pressures. There was no gradient across aortic valve by catheter pullback from LV to aorta. Mildly reduced LV function by transthoracic echo. Evidence of inferior wall motion abnormalities due to prior inferior infarct. LVEF 40-45%. Angiographically normal left main, minimal disease in LAD and left circumflex. Very large and dominant RCA with evidence of a stent in the distal RCA. There is 60% in-stent restenosis of the RCA stent. iFR across the lesion was hemodynamically insignificant at 0.96. iFR pullback showed the entire gradient was due to the single lesion in distal RCA. Above findings are consistent with mild ischemic cardiomyopathy with possible chronic dyspnea and fatigue on exertion. No indication for PCI at this time. Diagnostic Recommendations We recommend optimization of neurohormonal therapy for mild ischemic cardiomyopathy and chronic systolic CHF. At this time his volume status is optimized. Continue beta-kaur, ARB and other medications as before. Continue aspirin 81 mg daily indefinitely. He was advised to consider treatment for obstructive sleep apnea. In the past he did not tolerate CPAP machine. Follow-up in cardiology clinic as a scheduled. [facility] Diagnostic Recommendations: Medical therapy and/or counseling. Signatures ? Signed By: Dunia Beck MD Airway Mallampati Class: I TM Dist: <=3cm Neck ROM: Full Heart: See above. Lungs: ok Assessment and Plan Assessment Anesthesia Assessment: Anesthesia Plan Discussed Final Anesthetic Review Family History of Problems with Anesthesia: No History of Problems with Anesthesia: No NPO: Yes ASA Class: III and IV Final Preanesthetic Review: No Changes in Pt Med Stat, Meds/Allgs Chart Reviewed, Consent Obtained/Reviewed and Anes Risks/Benef Reviewed Patient Risk: High Procedure Risk: Low Anesthetic Plan Anesthetic Plan: Agree w/ Assess. and Plan and TIVA Disposition: Standard PACU
[2024-07-02] VITALS (7 sets, daily range): BP systolic 133–174; BP diastolic 65–98; PULSE 81–88; RESP 16–18; TEMP 36.3–36.6; O2SAT 97–99; BMI 32.4
--- NOTE | 2024-07-02 09:04 | ECG_ITS ---
Test Reason : PRE OP Blood Pressure : / mmHG Vent. Rate : 082 BPM Atrial Rate : 082 BPM P-R Int : 174 ms QRS Dur : 108 ms QT Int : 362 ms P-R-T Axes : 018 004 002 degrees QTc Int : 422 ms Normal sinus rhythm Cannot rule out Inferior infarct , age undetermined Abnormal ECG No previous ECGs available Referred By: Denita Aviles Electronically Signed By:ISI AGUAYO
[2024-07-02] MEDS: Lactated Ringers 1,000 ML 100 ML IVCONT (09:34)
[2024-07-02 09:44] LABS: Glucose, Whole Blood 123 mg/dL (60-115)
[2024-07-02] MEDS: Albuterol Sulfate (0.083%) 2.5 MG/3 ML VIAL.NEB INHALE (10:13)
--- NOTE | 2024-07-02 11:06 | MHC.SHP ---
Pre-Procedural Eval Section A - 24 Hr Update-Section A only Date of Service: 07/02/24 The patient is an INPATIENT: No The patient has been examined within 24 hours of the surgical procedure. The History & Physical has been completed within 30 days and I have reviewed it.: Yes Section B - Complete if H&P > 30 days Chief Complaint: Retention of urine, unspecified Allergies: Allergies Allergy/AdvReac Type Severity Reaction Status Date / Time No Known Allergies Allergy Verified 07/02/24 09:49 [No Known Allergies*] Plan Diagnosis/Plan: Unchanged I have reviewed the history and physical and performed a pertinent physical examination on my patient. No changes have occurred unless specified. Cystoscopy. Guadarrama catheter insertion. Time Spent With Patient Time: Total time managing care of this patient today ____ minutes.
--- NOTE | 2024-07-02 12:12 | W.PM.OPN ---
Operative Note Operative Note Date of Service: 07/02/24 Narrative: PREOP DIAGNOSIS: Urinary retention POSTOP DIAGNOSIS: Urinary retention, bladder outlet obstruction due to enlarged prostate PROCEDURE: CYSTOSCOPY, Nichols catheter insertion SURGEON: Yossi Yu MD ANESTHESIA: MAC, IV sedation, local Indications: Urinary retention, bilateral hydronephrosis, obstructive uropathy. Details of procedure: The patient was brought into the operating room placed on the OR table in supine position. Antibiotics confirmed. IV sedation was administered. The patient was repositioned into lithotomy position, prepped and draped in the usual sterile fashion. Time-out was done per protocol. 2% lidocaine jelly, inserted transurethrally. A 22 fr cystoscope was placed transurethrally into the bladder. The bulbous urethra was within normal limits. The prostatic urethra was obstructive with trilobar enlargement. The right and left ureteral orifices were not well visualized. The entire bladder was visualized. There was moderate trabeculations and cellule changes noted. There were no suspicious bladder lesions seen. The cystoscope was removed. 16 fr nichols placed transurethrally. The patient was taken to recovery in stable condition. Complications: None Drains: 16 fr nichols 15 mL in balloon
== END 2024-07-02 12:26 | disposition home or self-care (01) ==
PROVIDERS: PCP Nurse Practitioner Family; Visit Provider Urology
PROC: 0TJB8ZZ Inspection of Bladder, Via Natural or Artificial Opening Endoscopic (ICD-10-PCS; CPT 52000; principal; 2024-07-02 10:30)
DX: N40.1 Benign prostatic hyperplasia with lower urinary tract symptoms (principal); N13.8 Other obstructive and reflux uropathy; R33.8 Other retention of urine; N13.30 Unspecified hydronephrosis; N32.89 Other specified disorders of bladder; I25.10 Atherosclerotic heart disease of native coronary artery without angina pectoris; Z95.5 Presence of coronary angioplasty implant and graft; E11.9 Type 2 diabetes mellitus without complications; Z79.82 Long term (current) use of aspirin; Z79.85 Long-term (current) use of injectable non-insulin antidiabetic drugs; Z98.890 Other specified postprocedural states; F17.210 Nicotine dependence, cigarettes, uncomplicated
CPT/HCPCS: 52005; 82947; 87086; 93005; J0696; J2250; J2704; J3010

== ENCOUNTER → 2024-07-02 08:50 | Outpatient (BNV) | payer MEDICARE, MEDICAID, SELFPAY | PROVIDERS: PCP Nurse Practitioner Family; Visit Provider Urology | DX: R33.9 Retention of urine, unspecified (principal) | CPT/HCPCS: 52000 ==

== ENCOUNTER 2024-07-19 09:07 | Outpatient (AMB) | payer MEDICARE, MEDICAID, SELFPAY ==
--- NOTE | 2024-07-19 09:23 | MHC.OFFVIS ---
Intake Visit Reasons: Urodynamics Intake Note: Patient is present for Urodynamics Urology Medication:levofloxacin Antibiotic Allergy:none Blood Thinner:aspirin Obgyn Specialist Required: No Allergies No Known Allergies [No Known Allergies*] Allergy (Verified 07/25/24 14:51) HPI Comments Details: 07/19/24-Roberto Carlosis here for urodynamics. The patient has has a nichols in place. Interpretation: Complex uroflow was not obtained. During the filling phase there was first sensation 366 mL, First desire 476 mL. Stopped filling bladder at 499 mL The patient was unable to void. Findings consistent with neurogenic bladder. EMG- Appropriate changes in the waveforms were noted through out the study. The patient declined CIC, or catheter management. Discussed affect of nursing home issues related to renal function. Review of chart: 05/29/28--Roberto Carlos is here in fu post CTAP-05/20/24--I have discussed results, concerning for bilateral hydro and distended bladder, likely contributing to renal dysfunction. The patient refuses a nichols. He declines office cystoscopy. Will sched outpt cystoscopy, discussed that nichols can be placed at that time if patient agrees to it. 04/08/24--Roberto Carlos is a 64-year-old male who was seen by Nephrology due to rising serum creatinine. He was sent for renal ultrasound resulting in bilateral hydronephrosis. Renal US 03/18/24--B/L hydro, no renal calculi, Urinary bladder is overdistended with jets visualized bilaterally and small calculi in the dependent portion of the bladder. The patient has lower urinary tract symptoms of urinary frequency and nocturia. He states he has had episodes of uncontrolled urinary leakage at night. I have discussed that there are urinary conditions that affect voiding function including bladder spasms, outlet obstruction, as well as hypotonic bladder. He denies dysuria or pain with urination. Comorbidity diabetes, Nicotine dependence. I have discussed further evaluation with CT abdomen and pelvis without IV contrast in follow-up office cystoscopy, PSA screening. Consideration for Urodynamics in the future discussed. [facility] Medical History (Updated 10/07/24 @ 17:38 by Yossi Yu MD) Post covid-19 condition, unspecified Tobacco abuse Diabetes Obese Ischemic cardiomyopathy Hyperlipidemia associated with type 2 diabetes mellitus Ventricular tachycardia Myocardial infarction CAD (coronary artery disease) COPD (chronic obstructive pulmonary disease) Sleep apnea Surgical History History of automatic internal cardiac defibrillator (AICD) Hx of heart artery stent Hx of neck surgery Hx of foot surgery Hx of endoscopy History of colonoscopy Family History Father Hx of cancer of lung History of heart attack Mother History of cancer Brother Hx of type 1 diabetes mellitus Hx of bladder cancer History of prostate cancer Sister Hx of breast cancer Sister History of lung or bronchial cancer Social History Are you a primary day care aide to a significant other at home: No Do you presently have visiting nurse or other home services: No Alcohol intake: current Alcohol intake frequency: a few times a month Patient Tobacco Use Status: Current everyday Tobacco user Tobacco use type: Cigarette Cigarettes Per Day: 10 Office Procedures Urodynamic Studies Consent Discussed risk and benefit or proposed procedure with the patient. Information consent for procedure given to the patient. Discussed technical aspects, risks, benefits and alternatives in full. Addressed all of the patient's questions and concerns regarding the procedure. The patient demonstrated knowledge and understanding. They wish to proceed with this procedure. Preparation The patient was prepped in the usual manner. A recyclable materials distributor was present and in the room. Genitalia was prepped with betadine solution in a sterile manner. Procedure Complex Uroflow Not completed, pt presents with nichols catheter Cystometrogram Vaginal/rectal catheter type: rectal First sensation at (mL): 366 mL First desire at (mL): 476 mL Maximum fill (mL): 499 mL Max detrussor pressure of (cm H2O): 19--pt unable to void Prep: The patient was prepped in the usual manner. A recyclable materials distributor was present and in the room. Genitalia was prepped with betadine solution in a sterile manner. 31733-Gdvfznesodzqmu w/ MOLD FINISHER 22992-Zvtz/Urinary Muscle Study 96302-Pqvjf-Efcbdxiym Pressure Test Procedure code (CPT) selection complete Office Meds nitrofurantoin monohydrate/macrocrystals 100 mg capsule Performing Provider: Yossi Yu MD [place] [facility] [place] [facility] [place] [facility] Administered by: Richard Adam LPN on 07/19/24 09:23 Dose Route Admin Location Dispensed Lot Number Expiration Date NDC Molasses And Caramel Operator 100 mg PO 1 cap Assessment & Plan Assessment & Plan (1) Hydronephrosis: Code(s): N13.30 - Unspecified hydronephrosis Category: Medical (2) Urinary retention: Code(s): R33.9 - Retention of urine, unspecified Category: Medical (3) Neurogenic bladder: Code(s): N31.9 - Neuromuscular dysfunction of bladder, unspecified Category: Medical (4) CKD (chronic kidney disease): Code(s): N18.9 - Chronic kidney disease, unspecified Category: Medical Plan The patient declined CIC, or catheter management. Discussed affect of nursing home issues related to renal function. Orders: Orders AMB Urodynamics Studies 07/19/24 R33.9 - Retention of urine, unspecified, R32 - Unspecified urinary incontinence, N40.1 - Benign prostatic hyperplasia with lower urinary tract symptoms Patient Instructions: The patient had an opportunity to ask questions regarding treatment plan. The patient expressed understanding and agreement with the above treatment plan. The patient is aware they should contact our office by phone for worsening of their current condition or the appearance of new symptoms. Compliance is encouraged with any medications and followup testing that is ordered. It is a privilege to be allowed the opportunity to participate in the urologic care of your patient. If you have any questions or concerns regarding treatment for the above conditions please do not hesitate to contact me. The office telephone contact is [phone]. This note is constructed in part using voice recognition software. While every effort has been made to ensure accuracy spa director errors may have been included. Yours sincerely, Yossi Yu MD Coding Level of Care Code Procedure Only Diagnoses Hydronephrosis N13.30 Urinary retention R33.9 Neurogenic bladder N31.9 CKD (chronic kidney disease) N18.9 CPT Codes Urodynamic Studies - CPT: 21003-Dbfixzoclbmgea w/ MOLD FINISHER ([id number]) Urodynamic Studies - CPT: 66812-Uhtw/Urinary Muscle Study ([id number]) Urodynamic Studies - CPT: 35242-Kbqkg-Qckhzlcta Pressure Test ([id number])
== END 2024-07-19 10:53 | disposition home or self-care (01) ==
PROVIDERS: PCP Nurse Practitioner Family; Visit Provider Urology
DX: R33.9 Retention of urine, unspecified (principal); R32 Unspecified urinary incontinence; N40.1 Benign prostatic hyperplasia with lower urinary tract symptoms
CPT/HCPCS: 51728; 51741; 51784; 51797

== ENCOUNTER → 2024-07-19 09:07 | Outpatient (BNVA) | payer MEDICARE, MEDICAID, SELFPAY | PROVIDERS: PCP Nurse Practitioner Family; Visit Provider Urology | DX: N13.30 Unspecified hydronephrosis (principal); N31.9 Neuromuscular dysfunction of bladder, unspecified; R32 Unspecified urinary incontinence; N40.1 Benign prostatic hyperplasia with lower urinary tract symptoms; R33.8 Other retention of urine; N18.9 Chronic kidney disease, unspecified | CPT/HCPCS: 51728; 51741; 51784; 51797 ==

== ENCOUNTER 2024-07-25 14:47 | Outpatient (AMB) | payer MEDICARE, MEDICAID, SELFPAY ==
[2024-07-25 14:48] VITALS: BP 114/60; PULSE 95; O2SAT 96; BMI 31.6
--- NOTE | 2024-07-25 14:48 | HO.NEPHOV ---
Vital Signs 07/25/24 14:48 Height 5 ft 5 in Weight 190 lb BMI 31.6 BP 114/60 Blood Pressure Location Rt brachial Position Sitting Pulse 95 Pulse Source Pulse Oximeter Pulse Oximetry (%) 96 Oxygen Delivery Method Room Air Intake Visit Reasons: 2 mon follow up/ Conf Sustainable Products Marketing Manager Required: No Accompanied by: Spouse Allergies No Known Allergies [No Known Allergies*] Allergy (Verified 07/25/24 14:51) Medication List - Last Reconciled 07/25/24 by Aden Mckee MD aspirin 81 mg PO BEDTIME atorvastatin 80 mg PO BEDTIME dulaglutide (Trulicity) 4.5 mg subcut QWEEK empagliflozin (Jardiance) 25 mg PO QAM irbesartan 75 mg PO BEDTIME levofloxacin 250 mg PO Q24H metformin ER 500 mg PO DAILY metoprolol succinate ER 25 mg PO BEDTIME HPI Comments Details: . Roberto Carlos is a pleasant 64-year-old man referred for elevated serum creatinine. In 02/19/2024 serum creatinine was 1.4 mg/dL with a EGFR of 51 mL/minute. In the past serum creatinine was 1.3 mg/dL in December and in 2022 serum creatinine was 0.8 mg/dL. There has been no new medications added in the recent times. He has been on irbesartan 75 mg for the last several years. Does not take any NSAIDs. Overall blood pressure has been well controlled. No hypotensive episodes He has a history of diabetes mellitus and recent A1c was 7.8%. He is currently on Januvia metformin and Jardiance. Recent urine studies did not reveal any significant proteinuria. He has no urinary symptoms other than increased frequency. No polyuria polydipsia. He has been on tamsulosin for quite some time but does not have a history of BPH. If he has a history of coronary artery disease and underwent a stent placement back in 2004. In 2020 he had a defibrillator inserted. He has a history of smoking more than 1 pack per day. He quit smoking in 2004. Currently smoking very few cigarettes. No history of any alcohol abuse. There is a strong family history of coronary disease. No family history of kidney disease. 04/03/2024. Roberto Carlos is here for follow-up. Underwent a workup as outlined. Recent creatinine was 1.56. Twenty-four urine collection did not reveal any significant proteinuria. Renal ultrasonogram was done It is not reported yet. I reviewed the images. He is having increased urinary frequency and says that this has been going on for a year. 05/23/24 Seen by for bradley hydro Underwent CT scan Waiting for Cysto No nichols catheter yet ? 07/25/24 s/p Cysto and nichols REmoved on [facility] Medical History (Updated 07/02/24 @ 10:01 by Cindy Coreas RN) Post covid-19 condition, unspecified Tobacco abuse Diabetes Obese Ischemic cardiomyopathy Hyperlipidemia associated with type 2 diabetes mellitus Ventricular tachycardia Myocardial infarction CAD (coronary artery disease) COPD (chronic obstructive pulmonary disease) Sleep apnea Surgical History History of automatic internal cardiac defibrillator (AICD) Hx of heart artery stent Hx of neck surgery Hx of foot surgery Hx of endoscopy History of colonoscopy Family History Father Hx of cancer of lung History of heart attack Mother History of cancer Brother Hx of type 1 diabetes mellitus Hx of bladder cancer History of prostate cancer Sister Hx of breast cancer Sister History of lung or bronchial cancer Social History Are you a primary resident care manager to a significant other at home: No Do you presently have visiting nurse or other home services: No Alcohol intake: current Alcohol intake frequency: a few times a month Patient Tobacco Use Status: Current everyday Tobacco user Tobacco use type: Cigarette Cigarettes Per Day: 10 Physical Exam Vital Signs: Last Vital Signs Pulse 95 07/25/24 14:48 BP 114/60 07/25/24 14:48 Pulse Ox 96 07/25/24 14:48 Oxygen Delivery Method Room Air 07/25/24 14:48 BMI result Body Mass Index 31.6 Const General: comfortable; No acute distress Orientation/consciousness: patient oriented x3 Eyes General: appearance normal, both eyes and all related structures Visual Magaña: normal visual maagña by confrontation Neck Neck: Yes supple and Yes no JVD Resp Effort & Inspection: normal respiratory effort and respiratory effort not decreased Auscultation: rhonchi Cardio Palpation: no palpable S3 and no palpable S4 Heart sounds: no rubs GI Inspection: Yes normal to inspection Palpation (GI): Soft to palpation Percussion: Yes normal to percussion Auscultation: normal bowel sounds General: Yes no CVA tenderness Back/Spine/Pelvis Back: no CVA tenderness Skin General skin exam: no petechiae and no purpura Neuro General: patient oriented x3 and no focal motor deficits Extrem General: No clubbing and No edema Results Reviewed Nephrology Results: No Data to Display Assessment & Plan Assessment & Plan (1) CKD (chronic kidney disease): Code(s): N18.9 - Chronic kidney disease, unspecified Category: Medical (2) Hydronephrosis: Code(s): N13.30 - Unspecified hydronephrosis Category: Medical Plan . Roberto Carlos is a 60-year-old man with a history of longstanding diabetes mellitus and coronary disease with a recent elevation serum creatinine. Recent serum creatinine has been around 0.8-0.9 mg/dL up until 2022. Over the last few months serum creatinine is bumped up to 1.4 mg/dL. He has no significant proteinuria. Twenty-four urine collection did not reveal any proteinuria Recent urine sediments were bland. Renal ultrasonogram reveals evidence of hydronephrosis. He has underlying obstructive uropathy. No reason to believe that he has any active glomerulonephritis or interstitial disease. Plan Keep current medications for now. Agree with Jardiance for cardiorenal protection. Along with low-dose ARB. Await Urology follow up . Continue tamsulosin Encouraged to stay on low-sodium diet and increase p.o. fluid intake. Continue to avoid nephrotoxic agents including NSAIDs. Orders: Orders Basic Metabolic Panel Today N13.30 - Unspecified hydronephrosis, N18.9 - Chronic kidney disease, unspecified Complete Blood Count Auto Diff Today N13.30 - Unspecified hydronephrosis, N18.9 - Chronic kidney disease, unspecified Basic Metabolic Panel 3 Months N18.9 - Chronic kidney disease, unspecified Coding Level of Care Code Est Pt Level 4 (27974) Diagnoses CKD (chronic kidney disease) N18.9 Hydronephrosis N13.30
== END 2024-07-25 15:06 | disposition home or self-care (01) ==
PROVIDERS: PCP Nurse Practitioner Family; Visit Provider Internal Medicine Hypertension Specialist
DX: E11.22 Type 2 diabetes mellitus with diabetic chronic kidney disease (principal); N18.9 Chronic kidney disease, unspecified; N13.30 Unspecified hydronephrosis
CPT/HCPCS: 99214

== ENCOUNTER → 2024-07-25 14:47 | Outpatient (BNVA) | payer MEDICARE, MEDICAID, SELFPAY | PROVIDERS: PCP Nurse Practitioner Family; Visit Provider Internal Medicine Hypertension Specialist | DX: N13.30 Unspecified hydronephrosis (principal); N18.9 Chronic kidney disease, unspecified | CPT/HCPCS: 99212 ==

== ENCOUNTER 2024-10-16 10:34 | Outpatient (AMB) | payer MEDICARE, MEDICAID, SELFPAY ==
--- NOTE | 2024-10-16 10:48 | HO.NEPHOV_ITS ---
Vital Signs 10/16/24 10:49 Height 5 ft 5 in Weight 185 lb BMI 30.8 BP 134/72 Blood Pressure Location Rt brachial Position Sitting Pulse 74 Pulse Source Pulse Oximeter Pulse Oximetry (%) 97 Oxygen Delivery Method Room Air Intake Visit Reasons: CKD-Conf Photostat Operator Helper Required: No Accompanied by: Spouse Allergies No Known Allergies [No Known Allergies*] Allergy (Verified 10/16/24 10:51) HPI Comments Details: . Roberto Carlos is a pleasant 64-year-old man referred for elevated serum creatinine. In 02/19/2024 serum creatinine was 1.4 mg/dL with a EGFR of 51 mL/minute. In the past serum creatinine was 1.3 mg/dL in December and in 2022 serum creatinine was 0.8 mg/dL. There has been no new medications added in the recent times. He has been on irbesartan 75 mg for the last several years. Does not take any NSAIDs. Overall blood pressure has been well controlled. No hypotensive episodes He has a history of diabetes mellitus and recent A1c was 7.8%. He is currently on Januvia metformin and Jardiance. Recent urine studies did not reveal any significant proteinuria. He has no urinary symptoms other than increased frequency. No polyuria polydipsia. He has been on tamsulosin for quite some time but does not have a history of BPH. If he has a history of coronary artery disease and underwent a stent placement back in 2004. In 2020 he had a defibrillator inserted. He has a history of smoking more than 1 pack per day. He quit smoking in 2004. Currently smoking very few cigarettes. No history of any alcohol abuse. There is a strong family history of coronary disease. No family history of kidney disease. 04/03/2024. Roberto Carlos is here for follow-up. Underwent a workup as outlined. Recent creatinine was 1.56. Twenty-four urine collection did not reveal any significant proteinuria. Renal ultrasonogram was done It is not reported yet. I reviewed the images. He is having increased urinary frequency and says that this has been going on for a year. 05/23/24 Seen by for bradley hydro Underwent CT scan Waiting for Cysto No nichols catheter yet ? 07/25/24 s/p Cysto and nichols; Removed [facility] Medical History (Updated 10/07/24 @ 17:38 by Yossi Yu MD) Post covid-19 condition, unspecified Tobacco abuse Diabetes Obese Ischemic cardiomyopathy Hyperlipidemia associated with type 2 diabetes mellitus Ventricular tachycardia Myocardial infarction CAD (coronary artery disease) COPD (chronic obstructive pulmonary disease) Sleep apnea Surgical History History of automatic internal cardiac defibrillator (AICD) Hx of heart artery stent Hx of neck surgery Hx of foot surgery Hx of endoscopy History of colonoscopy Family History Father Hx of cancer of lung History of heart attack Mother History of cancer Brother Hx of type 1 diabetes mellitus Hx of bladder cancer History of prostate cancer Sister Hx of breast cancer Sister History of lung or bronchial cancer Social History Are you a primary family day care worker to a significant other at home: No Do you presently have visiting nurse or other home services: No Alcohol intake: current Alcohol intake frequency: a few times a month Patient Tobacco Use Status: Current everyday Tobacco user Tobacco use type: Cigarette Cigarettes Per Day: 10 Physical Exam Vital Signs: Last Vital Signs Pulse 74 10/16/24 10:49 BP 134/72 10/16/24 10:49 Pulse Ox 97 10/16/24 10:49 Oxygen Delivery Method Room Air 10/16/24 10:49 BMI result Body Mass Index 30.8 Comfortable Neck supple no JVD. Lungs entry equal no rales. Heart S1-S2 heard no gallop or rub. Abdomen soft nontender. Neuro alert awake oriented. No asterixis. Extremities no edema. Results Reviewed Nephrology Results: No Data to Display Assessment & Plan Assessment & Plan (1) CKD (chronic kidney disease): Code(s): N18.9 - Chronic kidney disease, unspecified Category: Medical (2) Hydronephrosis: Code(s): N13.30 - Unspecified hydronephrosis Category: Medical Plan . Roberto Carlos is a 60-year-old man with a history of longstanding diabetes mellitus and coronary disease with a recent elevation serum creatinine. Recent serum creatinine has been around 0.8-0.9 mg/dL up until 2022. Over the last few months serum creatinine is bumped up to 1.4 mg/dL. He has no significant proteinuria. Twenty-four urine collection did not reveal any proteinuria Recent urine sediments were bland. Renal ultrasonogram reveals evidence of hydronephrosis. He has underlying obstructive uropathy. No reason to believe that he has any active glomerulonephritis or interstitial disease. Plan Keep current medications for now. Agree with Jardiance for cardiorenal protection. Along with low-dose ARB. Await Urology follow up . Continue tamsulosin Encouraged to stay on low-sodium diet and increase p.o. fluid intake. Continue to avoid nephrotoxic agents including NSAIDs. Coding Level of Care Code Est Pt Level 4 (26662) Diagnoses CKD (chronic kidney disease) N18.9 Hydronephrosis N13.30
[2024-10-16 10:49] VITALS: BP 134/72; PULSE 74; O2SAT 97; BMI 30.8
== END 2024-10-16 11:13 | disposition home or self-care (01) ==
PROVIDERS: PCP Nurse Practitioner Family; Visit Provider Internal Medicine Hypertension Specialist
DX: N18.9 Chronic kidney disease, unspecified (principal); N13.30 Unspecified hydronephrosis
CPT/HCPCS: 99214

== ENCOUNTER → 2024-10-16 10:34 | Outpatient (BNVA) | payer MEDICARE, MEDICAID, SELFPAY | PROVIDERS: PCP Nurse Practitioner Family; Visit Provider Internal Medicine Hypertension Specialist | DX: N18.9 Chronic kidney disease, unspecified (principal); N13.30 Unspecified hydronephrosis | CPT/HCPCS: 99212 ==

== ENCOUNTER 2024-10-31 14:43 | Outpatient (AMB) | payer MEDICARE, MEDICAID, SELFPAY ==
--- NOTE | 2024-10-31 15:22 | A.OFFVIS_ITS ---
Intake Visit Reasons: H&P Surgery Discussion Intake Note: Patient is Present for discussion prostate procedure Urology Medication: None Antibiotic Allergies: None Blood Thinners: Asprin PVR: over 999ml Aquarist Required: No Allergies No Known Allergies [No Known Allergies*] Allergy (Verified 10/31/24 15:26) HPI Comments Details: 10/31/24--Roberto Carlos is here with his in follow-up to discuss management for urinary retention. The patient has chronic kidney disease complicated by voiding dysfunction due to neurogenic bladder also has enlarged prostate. I initially discussed a prostate procedure however on today's visit I have re- emphasized that even after a procedure like that success in emptying the bladder we will be low. Urinalysis is negative. Bladder scan greater than 900 mL. Patient declines catheterization to drain the bladder. Suprapubic tube is less desirable then CIC. I want them to speak with another urologist for 2nd opinion they are willing to see Dr. Lee. 07/19/24-Roberto Carlosis here for urodynamics. The patient has has a nichols in place. Interpretation: Complex uroflow was not obtained. During the filling phase there was first sensation 366 mL, First desire 476 mL. Stopped filling bladder at 499 mL The patient was unable to void. Findings consistent with neurogenic bladder. EMG- Appropriate changes in the waveforms were noted through out the study. The patient declined CIC, or catheter management. Discussed affect of jail issues related to renal function. 05/29/28--Roberto Carlos is here in fu post CTAP-05/20/24--I have discussed results, concerning for bilateral hydro and distended bladder, likely contributing to renal dysfunction. The patient refuses a nichols. He declines office cystoscopy. Will sched outpt cystoscopy, discussed that nichols can be placed at that time if patient agrees to it. 04/08/24--Roberto Carlos is a 64-year-old male who was seen by Nephrology due to rising serum creatinine. He was sent for renal ultrasound resulting in bilateral hydronephrosis. Renal US 03/18/24--B/L hydro, no renal calculi, Urinary bladder is overdistended with jets visualized bilaterally and small calculi in the dependent portion of the bladder. The patient has lower urinary tract symptoms of urinary frequency and nocturia. He states he has had episodes of uncontrolled urinary leakage at night. I have discussed that there are urinary conditions that affect voiding function including bladder spasms, outlet obstruction, as well as hypotonic bladder. He denies dysuria or pain with urination. Comorbidity diabetes, Nicotine dependence. I have discussed further evaluation with CT abdomen and pelvis without IV contrast in follow-up office cystoscopy, PSA screening. Consideration for Urodynamics in the future discussed. [facility] Medical History Post covid-19 condition, unspecified Tobacco abuse Diabetes Obese Ischemic cardiomyopathy Hyperlipidemia associated with type 2 diabetes mellitus Ventricular tachycardia Myocardial infarction CAD (coronary artery disease) COPD (chronic obstructive pulmonary disease) Sleep apnea Surgical History History of automatic internal cardiac defibrillator (AICD) Hx of heart artery stent Hx of neck surgery Hx of foot surgery Hx of endoscopy History of colonoscopy Family History Father Hx of cancer of lung History of heart attack Mother History of cancer Brother Hx of type 1 diabetes mellitus Hx of bladder cancer History of prostate cancer Sister Hx of breast cancer Sister History of lung or bronchial cancer Social History Are you a primary critical care nurse specialist to a significant other at home: No Do you presently have visiting nurse or other home services: No Alcohol intake: current Alcohol intake frequency: a few times a month Patient Tobacco Use Status: Current everyday Tobacco user Tobacco use type: Cigarette Cigarettes Per Day: 10 Review of Systems Const All systems reviewed & are unremarkable except as noted in HPI and below Reports no additional complaints Eyes Reports no additional complaints ENT Reports no additional complaints Card Reports no additional complaints Resp Reports no additional complaints GI Reports no additional complaints Reports as per HPI Musc Reports no additional complaints Skin/Breast Reports system reviewed and no additional complaints, except as documented Neuro Reports no additional complaints Psych Reports no additional complaints Endo Reports no additional complaints Evan/Lymph Reports no additional complaints Aller/Immun Reports no additional complaints Office Procedures Post Void Residual Post Residual Void Post Void Residual (PVR): 999 [id number] Void Residual by ultrasound Assessment & Plan Assessment & Plan (1) Hydronephrosis: Code(s): N13.30 - Unspecified hydronephrosis Category: Medical (2) Urinary retention: Code(s): R33.9 - Retention of urine, unspecified Category: Medical (3) Neurogenic bladder: Code(s): N31.9 - Neuromuscular dysfunction of bladder, unspecified Category: Medical (4) CKD (chronic kidney disease): Code(s): N18.9 - Chronic kidney disease, unspecified Category: Medical Plan Second opinion. Follow-up with Dr. Lee Orders: Orders AMB Urinalysis Automated Today Z13.9 - Encounter for screening, unspecified AMB Post Void Residual by ultrasound Today R33.9 - Retention of urine, unspecified Patient Instructions: The patient had an opportunity to ask questions regarding treatment plan. The patient expressed understanding and agreement with the above treatment plan. The patient is aware they should contact our office by phone for worsening of their current condition or the appearance of new symptoms. Compliance is encouraged with any medications and followup testing that is ordered. It is a privilege to be allowed the opportunity to participate in the urologic care of your patient. If you have any questions or concerns regarding treatment for the above conditions please do not hesitate to contact me. The office telephone contact is [phone]. This note is constructed in part using voice recognition software. While every effort has been made to ensure accuracy air plant engineer errors may have been included. Yours sincerely, Yossi Yu MD Coding Level of Care Code Est Pt Level 4 (79289) Complex EM visit Add On G2211 Diagnoses Hydronephrosis N13.30 Urinary retention R33.9 Neurogenic bladder N31.9 CKD (chronic kidney disease) N18.9 CPT Codes Post Residual Void - PVR CPT Code: 59010-Kntf Void Residual by ultrasound ([id number])
== END 2024-10-31 15:58 | disposition home or self-care (01) ==
PROVIDERS: PCP Nurse Practitioner Family; Visit Provider Urology
DX: N13.30 Unspecified hydronephrosis (principal); R33.9 Retention of urine, unspecified; N31.9 Neuromuscular dysfunction of bladder, unspecified; N18.9 Chronic kidney disease, unspecified
CPT/HCPCS: 99214; G2211

== ENCOUNTER → 2024-10-31 14:43 | Outpatient (BNVA) | payer MEDICARE, MEDICAID, SELFPAY | PROVIDERS: PCP Nurse Practitioner Family; Visit Provider Urology | DX: N13.30 Unspecified hydronephrosis (principal); N31.9 Neuromuscular dysfunction of bladder, unspecified; N18.9 Chronic kidney disease, unspecified; R33.9 Retention of urine, unspecified | CPT/HCPCS: 51798; 99212 ==

== ENCOUNTER 2024-11-05 08:59 | Outpatient (AMB) | payer MEDICARE, MEDICAID, SELFPAY ==
--- NOTE | 2024-11-05 08:59 | A.OFFVIS_ITS ---
Intake Visit Reasons: SYLVIE to discuss procedure Intake Note: Patient is present for SYLVIE TO DISCUSS PROCEDURE Urology Medication:NONE Antibiotic Allergy:NONE Blood Thinner:ASPIRIN Tongue Presser Required: No Allergies No Known Allergies [No Known Allergies*] Allergy (Verified 11/05/24 09:00) HPI Comments Details: Blue is a pleasant male. He is a patient of . He is seen for the following urologic conditions - diabetic cystopathy - bilateral hydronephrosis Telemedicine Evaluation 15 min Consultation [employer] Video Diabetic cystopathy Urodynamics 07/25 Findings consistent with neurogenic bladder Discussed rationale behind moving ahead with prostate and bladder procedure. Primary concern is slowly rising creatinine in setting of bilateral hydronephrosis and a large bladder that has incomplete emptying. Recommendation for GreenLight laser prostate with suprapubic tube placement He understands the is a low likelihood of recovery of bladder function There may well be the possibility of trialing InterStim or other forms of bladder stimulation. This could only be done in a setting where outlet obstruction has been resolved. 6-8 week follow-up office 10/31/24--Roberto Carlos is here with his in follow-up to discuss management for urinary retention. The patient has chronic kidney disease complicated by voiding dysfunction due to neurogenic bladder also has enlarged prostate. I initially discussed a prostate procedure however on today's visit I have re- emphasized that even after a procedure like that success in emptying the bladder we will be low. Urinalysis is negative. Bladder scan greater than 900 mL. Patient declines catheterization to drain the bladder. Suprapubic tube is less desirable then CIC. I want them to speak with another urologist for 2nd opinion they are willing to see Dr. Lee. 07/19/24-Roberto Carlosis here for urodynamics. The patient has has a nichols in place. Interpretation: Complex uroflow was not obtained. During the filling phase there was first sensation 366 mL, First desire 476 mL. Stopped filling bladder at 499 mL The patient was unable to void. Findings consistent with neurogenic bladder. EMG- Appropriate changes in the waveforms were noted through out the study. The patient declined CIC, or catheter management. Discussed affect of [facility] issues related to renal function. 05/29/28--Roberto Carlos is here in fu post CTAP-05/20/24--I have discussed results, concerning for bilateral hydro and distended bladder, likely contributing to renal dysfunction. The patient refuses a nichols. He declines office cystoscopy. Will sched outpt cystoscopy, discussed that nichols can be placed at that time if patient agrees to it. 04/08/24--Roberto Carlos is a 64-year-old male who was seen by Nephrology due to rising serum creatinine. He was sent for renal ultrasound resulting in bilateral hydronephrosis. Renal US 03/18/24--B/L hydro, no renal calculi, Urinary bladder is overdistended with jets visualized bilaterally and small calculi in the dependent portion of the bladder. The patient has lower urinary tract symptoms of urinary frequency and nocturia. He states he has had episodes of uncontrolled urinary leakage at night. I have discussed that there are urinary conditions that affect voiding function including bladder spasms, outlet obstruction, as well as hypotonic bladder. He denies dysuria or pain with urination. Comorbidity diabetes, Nicotine dependence. I have discussed further evaluation with CT abdomen and pelvis without IV contrast in follow-up office cystoscopy, PSA screening. Consideration for Urodynamics in the future discussed. [facility] Medical History Post covid-19 condition, unspecified Tobacco abuse Diabetes Obese Ischemic cardiomyopathy Hyperlipidemia associated with type 2 diabetes mellitus Ventricular tachycardia Myocardial infarction CAD (coronary artery disease) COPD (chronic obstructive pulmonary disease) Sleep apnea Surgical History History of automatic internal cardiac defibrillator (AICD) Hx of heart artery stent Hx of neck surgery Hx of foot surgery Hx of endoscopy History of colonoscopy Family History Father Hx of cancer of lung History of heart attack Mother History of cancer Brother Hx of type 1 diabetes mellitus Hx of bladder cancer History of prostate cancer Sister Hx of breast cancer Sister History of lung or bronchial cancer Social History Are you a primary caregivers non medical to a significant other at home: No Do you presently have visiting nurse or other home services: No Alcohol intake: current Alcohol intake frequency: a few times a month Patient Tobacco Use Status: Current everyday Tobacco user Tobacco use type: Cigarette Cigarettes Per Day: 10 Review of Systems Const All systems reviewed & are unremarkable except as noted in HPI and below Reports no additional complaints Resp Reports no additional complaints GI Reports no additional complaints Reports as per HPI Musc Reports no additional complaints Physical Exam Telemedicine evaluation Appropriate responses Regular breathing rate and rhythm HEENT Head: Yes normal to inspection Ears: hearing grossly normal bilaterally Eyes General: appearance normal, both eyes and all related structures Neck Neck: Yes normal visual inspection Chest Chest palpation & inspection: normal inspection of the chest Resp Effort & Inspection: normal respiratory effort and able to speak in complete sentences Telehealth Telehealth Location of provider rendering services: practice address Location of patient: address on file Patient Identification confirmed using: Name, : Yes Telehealth method: voice only Patient verbally consented to treatment: Yes Patient verbally consented to billing insurance company: Yes Patient informed of any privacy concerns related to visit: Yes Assessment & Plan Assessment & Plan (1) Hydronephrosis: Code(s): N13.30 - Unspecified hydronephrosis Category: Medical (2) Neurogenic bladder: Code(s): N31.9 - Neuromuscular dysfunction of bladder, unspecified Category: Medical Plan 6-8 week follow-up office discussion Patient Instructions: This note is constructed using voice recognition software. While every effort has been made to ensure accuracy center consultant errors may have been included. Imaging studies, laboratory and physical exam results were discussed and reviewed in detail. No major barriers to patient understanding were identified. An opportunity to ask questions regarding the treatment plan was provided. All questions were answered. The patient expressed understanding and agreement with the above treatment plan. The patient is aware they should contact our office by phone for worsening of their current condition or the appearance of new urologic symptoms. Compliance is encouraged with any medications and followup testing that is ordered. It is a privilege to participate in the urologic care of your patient. If you have any questions or concerns regarding treatment for the above conditions, or other urologic issues, please do not hesitate to contact me. The office telephone contact is [phone]. Sincerely, Dr Kavon Lee MD, [facility] - Urology Compassionate Specialist Care for the Genitourinary System Coding Level of Care Code Tele Est Pt Level 3 (34597) Diagnoses Hydronephrosis N13.30 Neurogenic bladder N31.9
== END 2024-11-05 09:50 | disposition home or self-care (01) ==
LOC: HO.HUSH 08:59
PROVIDERS: PCP Nurse Practitioner Family; Visit Provider Urology
DX: N13.30 Unspecified hydronephrosis (principal); N31.9 Neuromuscular dysfunction of bladder, unspecified
CPT/HCPCS: 98016

== ENCOUNTER → 2024-11-05 08:59 | Outpatient (BNVA) | payer MEDICARE, MEDICAID, SELFPAY | PROVIDERS: PCP Nurse Practitioner Family; Visit Provider Urology ==

== ENCOUNTER 2024-12-03 10:00 | Outpatient (REF) | payer MEDICARE, MEDICAID, SELFPAY ==
[2024-12-03 18:06] LABS: MANUAL DIFF FLAG NO
[2024-12-03 18:38] LABS: Appearance Urine Clear; Color Urine Yellow; Glucose Urine UA >=1000 mg/dL (Negative); Leukocyte Esterase Urine Negative (Negative); Nitrite Urine Negative (Negative); PH 5.5 (5.0-9.0); Specific Gravity - Urine 1.015 (1.005-1.025); UMIC TRIGGER UA YES; Urine Blood Negative (Negative); Urine Ketones Negative (Negative); Urine Protein Negative (Neg-Trace)
[2024-12-03 18:41] LABS: Anion Gap 13 (12-20); Blood Urea Nitrogen 23 mg/dL (9-16); Carbon Dioxide 23 mmol/L (22-29); Chloride 111 mmol/L (96-108); Estimated Glomerular Filt Rate 48; Glucose Random 130 mg/dL (60-115); Potassium 4.8 mmol/L (3.3-5.1); Sodium 142 mmol/L (135-145)
[2024-12-03 18:44] LABS: Bacteria Urine None Seen (None Seen); Hyaline Casts Urine 0-2 /LPF (0-2); RBC Urine 0-2 /HPF (0-2); Squamous Epithelial Cell Urine 0-2 /HPF (0-2); WBC Urine 0-5 /HPF (0-5)
[2024-12-03 18:44] LABS: Basophils Absolute Auto 0.1 X10*3/uL (0.0-0.2); Basophils Percent Auto 0.8 % (0-2); Eosinophils Absolute Auto 0.5 X10*3/uL (0.0-0.4); Eosinophils Percent Auto 4.4 % (0-4); Hematocrit 40.1 % (42.0-52.0); Hemoglobin 13.6 g/dl (14.0-18.0); Imm Gran Abs Auto 0.04 X10*3/uL (0.00-0.03); Imm Gran Pct Auto 0.4 % (0.0-0.4); Lymphocytes Absolute Auto 1.8 X10*3/uL (1.2-4.9); Lymphocytes Percent Auto 16.5 % (20-40); Mean Corpuscular HGB Conc 33.9 g/dl (31.0-36.0); Mean Corpuscular Hemoglobin 30.6 pg (27.0-33.0); Mean Corpuscular Volume 90.1 fL (80.0-98.0); Mean Platelet Volume 10.1 fL (9.4-12.4); Monocytes Absolute Auto 0.7 X10*3/uL (0.1-1.2); Monocytes Percent Auto 6.2 % (2-11); Neutrophils Absolute Auto 7.7 x10*3/uL (2.0-8.3); Neutrophils Percent Auto 71.7 % (45-73); Platelet Count 258 X10*3/uL (160-400); Red Blood Count 4.45 X10*6/uL (4.60-5.80); Red Cell Distribution Width 13.1 % (11.0-16.0); White Blood Count 10.7 X10*3/uL (4.8-10.8)
== END 2024-12-03 10:01 | disposition home or self-care (01) ==
LOC: HO.HKASLDS 10:00
PROVIDERS: Visit Provider Internal Medicine Hypertension Specialist
DX: N18.30 Chronic kidney disease, stage 3 unspecified (principal); N18.9 Chronic kidney disease, unspecified
CPT/HCPCS: 36415; 80048; 81001; 85025

== ENCOUNTER 2024-12-04 09:35 | Outpatient (AMB) | payer MEDICARE, MEDICAID, SELFPAY ==
[2024-12-04 09:48] VITALS: BP 118/72; PULSE 87; O2SAT 95; BMI 30.6
--- NOTE | 2024-12-04 09:48 | HO.NEPHOV ---
Vital Signs 12/04/24 09:48 Height 5 ft 5 in Weight 184 lb BMI 30.6 BP 118/72 Blood Pressure Location Lt brachial Position Sitting Pulse 87 Pulse Source Pulse Oximeter Pulse Oximetry (%) 95 Oxygen Delivery Method Room Air Intake Visit Reasons: Pt requested sooner appt/ Conf Loader Technician Required: No Accompanied by: Spouse Allergies No Known Allergies [No Known Allergies*] Allergy (Verified 12/04/24 09:50) Medication List - Last Reconciled 12/04/24 by Aden Mckee MD aspirin 81 mg PO BEDTIME atorvastatin 80 mg PO BEDTIME dulaglutide (Trulicity) 4.5 mg subcut QWEEK empagliflozin (Jardiance) 25 mg PO QAM irbesartan 75 mg PO BEDTIME metformin ER 500 mg PO DAILY metoprolol succinate ER 25 mg PO BEDTIME HPI Comments Details: . Roberto Carlos is a pleasant 64-year-old man referred for elevated serum creatinine. In 02/19/2024 serum creatinine was 1.4 mg/dL with a EGFR of 51 mL/minute. In the past serum creatinine was 1.3 mg/dL in December and in 2022 serum creatinine was 0.8 mg/dL. There has been no new medications added in the recent times. He has been on irbesartan 75 mg for the last several years. Does not take any NSAIDs. Overall blood pressure has been well controlled. No hypotensive episodes He has a history of diabetes mellitus and recent A1c was 7.8%. He is currently on Januvia metformin and Jardiance. Recent urine studies did not reveal any significant proteinuria. He has no urinary symptoms other than increased frequency. No polyuria polydipsia. He has been on tamsulosin for quite some time but does not have a history of BPH. If he has a history of coronary artery disease and underwent a stent placement back in 2004. In 2020 he had a defibrillator inserted. He has a history of smoking more than 1 pack per day. He quit smoking in 2004. Currently smoking very few cigarettes. No history of any alcohol abuse. There is a strong family history of coronary disease. No family history of kidney disease. 04/03/2024. Roberto Carlos is here for follow-up. Underwent a workup as outlined. Recent creatinine was 1.56. Twenty-four urine collection did not reveal any significant proteinuria. Renal ultrasonogram was done It is not reported yet. I reviewed the images. He is having increased urinary frequency and says that this has been going on for a year. 05/23/24 Seen by for bradley hydro Underwent CT scan Waiting for Cysto No nichols catheter yet ? 07/25/24 s/p Cysto and nichols; Removed on 12/04/2024. Recently seen by Urology. They made an urgent appointment for follow-up regarding CKD in further treatment options [facility] Medical History Post covid-19 condition, unspecified Tobacco abuse Diabetes Obese Ischemic cardiomyopathy Hyperlipidemia associated with type 2 diabetes mellitus Ventricular tachycardia Myocardial infarction CAD (coronary artery disease) COPD (chronic obstructive pulmonary disease) Sleep apnea Surgical History History of automatic internal cardiac defibrillator (AICD) Hx of heart artery stent Hx of neck surgery Hx of foot surgery Hx of endoscopy History of colonoscopy Family History Father Hx of cancer of lung History of heart attack Mother History of cancer Brother Hx of type 1 diabetes mellitus Hx of bladder cancer History of prostate cancer Sister Hx of breast cancer Sister History of lung or bronchial cancer Social History Are you a primary managed care manager to a significant other at home: No Do you presently have visiting nurse or other home services: No Alcohol intake: current Alcohol intake frequency: a few times a month Patient Tobacco Use Status: Current everyday Tobacco user Tobacco use type: Cigarette Cigarettes Per Day: 10 Physical Exam Vital Signs: Last Vital Signs Pulse 87 12/04/24 09:48 BP 118/72 12/04/24 09:48 Pulse Ox 95 12/04/24 09:48 Oxygen Delivery Method Room Air 12/04/24 09:48 BMI result Body Mass Index 30.6 Comfortable Neck supple no JVD. Lungs entry equal no rales. Heart S1-S2 heard no gallop or rub. Abdomen soft nontender. Neuro alert awake oriented. No asterixis. Extremities no edema. Results Reviewed Nephrology Results: Hgb 13.6 g/dl (14.0-18.0) L 12/03/24 WBC 10.7 X10*3/uL (4.8-10.8) 12/03/24 Plt Count 258 X10*3/uL (160-400) 12/03/24 Sodium 142 mmol/L (135-145) 12/03/24 Potassium 4.8 mmol/L (3.3-5.1) 12/03/24 Chloride 111 mmol/L (96-108) H 12/03/24 Carbon Dioxide 23 mmol/L (22-29) 12/03/24 BUN 23 mg/dL (9-16) H 12/03/24 Creatinine 1.48 mg/dL (0.5-1.4) H 12/03/24 Calcium 9.0 mg/dL (8.4-10.2) 12/03/24 Urine Protein Negative mg/dL (Neg-Trace) 12/03/24 Assessment & Plan Assessment & Plan (1) CKD (chronic kidney disease): Code(s): N18.9 - Chronic kidney disease, unspecified Category: Medical (2) Hydronephrosis: Code(s): N13.30 - Unspecified hydronephrosis Category: Medical (3) BPH loc w urin obs/LUTS: Code(s): N40.1 - Benign prostatic hyperplasia with lower urinary tract symptoms Category: Medical (4) Urinary retention: Code(s): R33.9 - Retention of urine, unspecified Category: Medical (5) Neurogenic bladder: Code(s): N31.9 - Neuromuscular dysfunction of bladder, unspecified Category: Medical Plan . Roberto Carlos is a 60-year-old man with a history of longstanding diabetes mellitus and coronary disease with a recent elevation serum creatinine. Recent serum creatinine has been around 0.8-0.9 mg/dL up until 2022. Over the last few months serum creatinine is bumped up to 1.4 mg/dL. He has no significant proteinuria. Twenty-four urine collection did not reveal any proteinuria Recent urine sediments were bland. Renal ultrasonogram reveals evidence of hydronephrosis. He has underlying obstructive uropathy. No reason to believe that he has any active glomerulonephritis or interstitial disease. Plan Keep current medications for now. Agree with Jardiance for cardiorenal protection. Along with low-dose ARB. Urology follow up . Continue tamsulosin Encouraged to stay on low-sodium diet and increase p.o. fluid intake. Continue to avoid nephrotoxic agents including NSAIDs. 12/04/2024. Overall renal function stable. Serum creatinine is around 1.48 which is marginally better than the previous value of 1.53 Urology note reviewed. Roberto Carlos has enlarged prostate with a neurogenic bladder. Urodynamic studies reviewed. Apparently was offered intermittent catheterization versus suprapubic cystostomy. They are requesting a 2nd opinion. At their request I will make a referral Orders: Referrals Urology Referral N31.9 - Neuromuscular dysfunction of bladder, unspecified, N40.1 - Benign prostatic hyperplasia with lower urinary tract symptoms, R33.9 - Retention of urine, unspecified Coding Level of Care Code Est Pt Level 4 (34066) Diagnoses CKD (chronic kidney disease) N18.9 Hydronephrosis N13.30 BPH loc w urin obs/LUTS N40.1 Urinary retention R33.9 Neurogenic bladder N31.9
== END 2024-12-04 11:04 | disposition home or self-care (01) ==
PROVIDERS: PCP Nurse Practitioner Family; Visit Provider Internal Medicine Hypertension Specialist
DX: N18.9 Chronic kidney disease, unspecified (principal); N13.30 Unspecified hydronephrosis; N40.1 Benign prostatic hyperplasia with lower urinary tract symptoms; R33.9 Retention of urine, unspecified; N31.9 Neuromuscular dysfunction of bladder, unspecified
CPT/HCPCS: 99214

== ENCOUNTER → 2024-12-04 09:35 | Outpatient (BNVA) | payer MEDICARE, MEDICAID, SELFPAY | PROVIDERS: PCP Nurse Practitioner Family; Visit Provider Internal Medicine Hypertension Specialist | DX: N40.1 Benign prostatic hyperplasia with lower urinary tract symptoms (principal); R33.8 Other retention of urine; N13.30 Unspecified hydronephrosis; N31.9 Neuromuscular dysfunction of bladder, unspecified; N18.9 Chronic kidney disease, unspecified | CPT/HCPCS: 99212 ==

== ENCOUNTER 2025-05-07 08:32 | Outpatient (AMB) | payer BC, SELFPAY ==
[2025-05-07 08:41] VITALS: BP 100/58; BMI 28.6
--- NOTE | 2025-05-07 08:41 | HO.NEPHOV_ITS ---
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 Roberto Carlos is a pleasant man referred for elevated serum creatinine. In 02/19/2024 serum creatinine was 1.4 mg/dL with a EGFR of 51 mL/minute. In the past serum creatinine was 1.3 mg/dL in December and in 2022 serum creatinine was 0.8 mg/dL. There has been no new medications added in the recent times. He has been on irbesartan 75 mg for the last several years. Does not take any NSAIDs. Overall blood pressure has been well controlled. No hypotensive episodes He has a history of diabetes mellitus and recent A1c was 7.8%. He is currently on Januvia metformin and Jardiance. Recent urine studies did not reveal any significant proteinuria. He has no urinary symptoms other than increased frequency. No polyuria polydipsia. He has been on tamsulosin for quite some time but does not have a history of BPH. If he has a history of coronary artery disease and underwent a stent placement back in 2004. In 2020 he had a defibrillator inserted. He has a history of smoking more than 1 pack per day. He quit smoking in 2004. Currently smoking very few cigarettes. No history of any alcohol abuse. There is a strong family history of coronary disease. No family history of kidney disease. 04/03/2024. Roberto Carlos is here for follow-up. Underwent a workup as outlined. Recent creatinine was 1.56. Twenty-four urine collection did not reveal any significant proteinuria. Renal ultrasonogram was done It is not reported yet. I reviewed the images. He is having increased urinary frequency and says that this has been going on for a year. 05/23/24 Seen by for bradley hydro Underwent CT scan Waiting for Cysto No nichols catheter yet ? 07/25/24 s/p Cysto and nichols; Removed on 12/04/2024. Recently seen by Urology. They made an urgent appointment for follow-up regarding CKD in further treatment options 05/07/25 The patient is a 65-year-old male presenting with the management of chronic conditions including hypertension, diabetes mellitus, and chronic kidney disease. The patient underwent prostate surgery on March 31 at [facility], performed by Dr. Garzon from [facility]. Post-surgery, the patient reports improved urination with less frequency and better sleep, although some incontinence persists. The patient has a history of hypertension, currently managed with irbesartan and metoprolol, but recent weight loss of 15 pounds has led to episodes of lightheadedness due to low blood pressure. The blood pressure was noted to drop to 80/50 mmHg upon standing, prompting a reduction in antihypertensive medication. Diabetes mellitus is managed with metformin, Jardiance, and Trulicity, with recent blood glucose levels at 6.9% and a noted weight loss of 15 pounds. The patient reports good control of blood sugar levels. Chronic kidney disease was noted with worsening kidney function on March 31, but recent labs are pending to assess current status. The patient is advised to maintain hydration to support kidney function. The patient admits to smoking occasionally, which may impact overall health and chronic conditions. The prostate tissue revealed low-grade malignancy and is currently being worked up for the same. [facility] Medical History Post covid-19 condition, unspecified Tobacco abuse Diabetes Obese Ischemic cardiomyopathy Hyperlipidemia associated with type 2 diabetes mellitus Ventricular tachycardia Myocardial infarction CAD (coronary artery disease) COPD (chronic obstructive pulmonary disease) Sleep apnea Surgical History (Updated 05/07/25 @ 08:46 by SOCRATES Adorno) History of prostate surgery History of automatic internal cardiac defibrillator (AICD) Hx of heart artery stent Hx of neck surgery Hx of foot surgery Hx of endoscopy History of colonoscopy Family History Father Hx of cancer of lung History of heart attack Mother History of cancer Brother Hx of type 1 diabetes mellitus Hx of bladder cancer History of prostate cancer Sister Hx of breast cancer Sister History of lung or bronchial cancer Social History Are you a primary prompt care rn to a significant other at home: No Do you presently have visiting nurse or other home services: No Alcohol intake: current Alcohol intake frequency: a few times a month Patient Tobacco Use Status: Current everyday Tobacco user Tobacco use type: Cigarette Cigarettes Per Day: 10 Physical Exam Vital Signs: Last Vital Signs BP 80/50 L 05/07/25 08:56 BMI result Body Mass Index 28.6 Comfortable Neck supple no JVD. Lungs entry equal no rales. Heart S1-S2 heard no gallop or rub. Abdomen soft nontender. Neuro alert awake oriented. No asterixis. Extremities no edema. Results Reviewed Nephrology Results: Hgb, (14.0-18.0) 13.6 g/dl L 12/03/24 WBC, (4.8-10.8) 10.7 X10*3/uL 12/03/24 Plt Count, (160-400) 258 X10*3/uL 12/03/24 Sodium, (135-145) 142 mmol/L 12/03/24 Potassium, (3.3-5.1) 4.8 mmol/L 12/03/24 Chloride, (96-108) 111 mmol/L H 12/03/24 Carbon Dioxide, (22-29) 23 mmol/L 12/03/24 BUN, (9-16) 23 mg/dL H 12/03/24 Creatinine, (0.5-1.4) 1.48 mg/dL H 12/03/24 Calcium, (8.4-10.2) 9.0 mg/dL Δ 12/03/24 Urine Protein, (Neg-Trace) Negative mg/dL 12/03/24 Renal US 03/18/24 Assessment & Plan Assessment & Plan (1) CKD (chronic kidney disease): Code(s): N18.9 - Chronic kidney disease, unspecified Category: Medical (2) Hydronephrosis: Code(s): N13.30 - Unspecified hydronephrosis Category: Medical (3) BPH loc w urin obs/LUTS: Code(s): N40.1 - Benign prostatic hyperplasia with lower urinary tract symptoms Category: Medical (4) Urinary retention: Code(s): R33.9 - Retention of urine, unspecified Category: Medical (5) Neurogenic bladder: Code(s): N31.9 - Neuromuscular dysfunction of bladder, unspecified Category: Medical Plan . Roberto Carlos is a 65-year-old man with a history of longstanding diabetes mellitus and coronary disease with a recent elevation serum creatinine. JORDYN due to obstructive uropathy. Next answered post prostate surgery. He had mild hyperkalemia prior to surgery. Repeat labs are pending. He has no significant proteinuria. Twenty-four urine collection did not reveal any proteinuria Recent urine sediments were bland. No reason to believe that he has any active glomerulonephritis or interstitial disease. Plan Keep current medications for now. Agree with Jardiance for cardiorenal protection. . Continue tamsulosin Encouraged to stay on low-sodium diet and increase p.o. fluid intake. Continue to avoid nephrotoxic agents including NSAIDs. Blood pressure the low today. Discontinue Irbesartan 75 mg Increase p.o. fluid intake. Recheck renal panel in the next 2 weeks. Orders: Orders Basic Metabolic Panel 2 Weeks N18.9 - Chronic kidney disease, unspecified Complete Blood Count no Diff 2 Weeks N18.9 - Chronic kidney disease, unspecified Coding Level of Care Code Est Pt Level 4 (81957) Diagnoses CKD (chronic kidney disease) N18.9 Hydronephrosis N13.30 BPH loc w urin obs/LUTS N40.1 Urinary retention R33.9 Neurogenic bladder N31.9
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
[2025-05-07 08:56] VITALS: BP 80/50
== END 2025-05-07 09:45 | disposition home or self-care (01) ==
LOC: HO.HKAS 08:33
PROVIDERS: PCP Nurse Practitioner Family; Visit Provider Internal Medicine Hypertension Specialist
DX: N18.9 Chronic kidney disease, unspecified (principal); N13.30 Unspecified hydronephrosis; N40.1 Benign prostatic hyperplasia with lower urinary tract symptoms; R33.9 Retention of urine, unspecified; N31.9 Neuromuscular dysfunction of bladder, unspecified
CPT/HCPCS: 99214

== ENCOUNTER 2025-06-04 13:47 | Outpatient (REF) | payer BC, SELFPAY ==
--- OUTSIDE RECORDS SUMMARY | 2025-06-04 15:57 | XMS_ITS | Encounter Summary ---
Author Organization [facility] Address [address] [place] [address] Care Team Providers Care Buildings Painter Name Role Phone Physician, No Pcp Primary Care Provider Unavaila ble Encounter Details Date Type Department Care Team (Late st Contact Info) Description 01/06/2025 Lab Requisition [facility] - Main Lab [address] [facility] [place] [phone] Efrain Sequeira MD [address] [place] [address] Benign prostatic hyperplasia with lower urinary tract symptoms; Encounter for preprocedural laboratory examination Social History Tobacco Use Types Packs/Day Years Used Date Smoking Tobacco: Never Assessed Sex and Gender Information Value Date Recorded Sex Assigned at Not on file Legal Sex Male 1:33 PM EDT Gender Identity Not on file Sexual Orientation Not on file documented as of this encounter Plan of Treatment Not on file documented as of this encounter Procedures Procedure Name Priority Date/Time Associated Diagnosis Comments PROSTATE SPECIFIC ANTIGEN DIAGNOSTIC Routine 01/06/2025 11:13 AM EDT Benign prostatic hyperplasia with lower urinary tract symptoms Encounter for preprocedural laboratory examination COMPLETE BLOOD COUNT Routine 01/06/2025 11:13 AM EDT Benign prostatic hyperplasia with lower urinary tract symptoms Encounter for preprocedural laboratory examination BASIC METABOLIC PANEL Routine 01/06/2025 11:13 AM EDT Benign prostatic hyperplasia with lower urinary tract symptoms Encounter for preprocedural laboratory examination documented in this encounter Results * (ABNORMAL) Basic metabolic panel (01/06/2025 11:13 AM EDT) Sodium 139 133 - 145 mmol/L LAB CHEMISTRY METHOD 01/06/2025 2:44 PM [facility] Potassium 4.8 3.5 - 5.5 mmol/L LAB CHEMISTRY METHOD 01/06/2025 2:44 PM [facility] Chloride 110 96 - 110 mmol/L LAB CHEMISTRY METHOD 01/06/2025 2:44 PM [facility] CO2 25 21 - 32 mmol/L LAB CHEMISTRY METHOD 01/06/2025 2:44 PM [facility] Anion Gap 4 3 - 11 LAB CHEMISTRY METHOD 01/06/2025 2:44 PM [facility] Glucose 107(H) 70 - 100 mg/dL LAB CHEMISTRY METHOD 01/06/2025 2:44 PM [facility] BUN 34(H) 5 - 25 mg/dL LAB CHEMISTRY METHOD 01/06/2025 2:44 PM [facility] Creatinine 1.66(H) 0.70 - 1.30 mg/dL LAB CHEMISTRY METHOD 01/06/2025 2:44 PM [facility] eGFR 46(L) >=60 mL/min/1. 73m2 LAB CHEMISTRY METHOD 01/06/2025 2:44 PM [facility] Comment:Calculation based on the Chronic Kidney Disease Epidemiology Collaboration (CKD-EPI) equation refit without adjustment for race. BUN/Creatinine Ratio 20.5 LAB CHEMISTRY METHOD 01/06/2025 2:44 PM [facility] Calcium 9.4 8.5 - 10.5 mg/dL LAB CHEMISTRY METHOD 01/06/2025 2:44 PM [facility] Blood Venous blood specimen / Unknown 01/06/2025 11:13 AM EDT 01/06/2025 1:38 PM EDT us Efrain Sequeira MD LAB BLOOD ORDERABLES Fin al Result [facility] [address] [place] [address], * (ABNORMAL) Complete blood count (01/06/2025 11:13 AM EDT) WBC 10.4 4.8 - 10.8 K/mcL LAB HEMETOLOGY METHOD 01/06/2025 2:[address] [facility] RBC 4.60 4.50 - 5.50 M/mcL LAB HEMETOLOGY METHOD 01/06/2025 2:[address] [facility] Hemoglobin 14.1 13.5 - 17.5 g/dL LAB HEMETOLOGY METHOD 01/06/2025 2:[address] [facility] Hematocrit 41.4(L) 42.0 - 54.0 % LAB HEMETOLOGY METHOD 01/06/2025 2:[address] [facility] MCV 89.8 79.0 - 98.0 FL LAB HEMETOLOGY METHOD 01/06/2025 2:[address] [facility] MCH 30.6 27.0 - 32.0 pcg LAB HEMETOLOGY METHOD 01/06[facility]25 [facility] MCHC 34.1 32.0 - 37.0 g/dL LAB HEMETOLOGY METHOD 01/06/2025 2:[address] [facility] RDW 12.9 11.0 - 15.0 % LAB HEMETOLOGY METHOD 01/06/2025 2:[address] [facility] Platelets 280 130 - 400 K/mcL LAB HEMETOLOGY METHOD 01/06/2025 2:02 [facility] MPV 10.2 7.0 - 11.0 FL LAB HEMETOLOGY METHOD 01/06/2025 2:[address] [facility] NRBC 0.0 <1.0 % LAB HEMETOLOGY METHOD 01/06/2025 2:[address] [facility] NRBC Absolute 0.00 <0.10 K/mcL LAB HEMETOLOGY METHOD 01/06/2025 2:[address] [facility] Blood Venous blood specimen / Unknown 01/06/2025 11:13 AM EDT 01/06/2025 1:38 PM EDT Efrain Sequeira MD LAB BLOOD ORDERABLES Fin al Result Performing Organization Address [facility] Co de Phone Number [facility] [address] [place] [address], [place] [phone] * Prostate specific antigen diagnostic (01/06/2025 11:13 AM EDT) PSA 3.93 0.00 - 4.00 ng/mL LAB CHEMISTRY METHOD 01/06/2025 3:[address] [facility] Blood Venous blood specimen / Unknown 01/06/2025 11:13 AM EDT 01/06/2025 1:[address] [facility] - 01/06/2025 3:19 PM EDT The Siemens Advia Centaur Chemiluminescent Immunoassay is used. Results obtained with different assay methods or kits cannot be used interchangeably. Results cannot be interpreted as absolute evidence of the presence or absence of malignant disease. Efrain Sequeira MD LAB BLOOD ORDERABLES Fin al Result Performing Organization Address City/[facility]/ZIP Co de Phone Number [facility] [address] [place] [address], [place] [phone] documented in this encounter Visit Diagnoses Diagnosis Benign prostatic hyperplasia with lower urinary tract symptoms Encounter for preprocedural laboratory examination documented in this encounter Care Teams Buildings Painter Relationship Specialty Start Date End Date Physician, No Pcp PCP - General 01/06/25 documented as of this encounter
--- OUTSIDE RECORDS SUMMARY | 2025-06-04 15:57 | XMS_ITS | Encounter Summary ---
Author Organization [facility] Address [address] [place] [address] Care Team Providers Care Weight Shifter Name Role Phone Physician, No Pcp Primary Care Provider Unavaila ble Encounter Details Date Type Department Care Team (Late st Contact Info) Description 04/23/2025 Lab Requisition [facility] - Main Lab [address] [facility] [employer] [place] [address] Efrain Sequeira MD [address] [place] [address] Malignant neoplasm of prostate (CMS/HCC V24, CMS/HCC V28) Social History Tobacco Use Types Packs/Day [...] EDT Malignant neoplasm of prostate (CMS/HCC V24, CMS/HCC V28) documented in this encounter Results * (ABNORMAL) Complete blood count (04/23/2025 11:15 AM EDT) WBC 10.1 4.8 - 10.8 K/[facility] LAB HEMETOLOGY METHOD 04/23/2025 1:35 PM [facility] LAB RBC 4.30(L) 4.50 - 5.50 M/mcL LAB HEMETOLOGY METHOD 04/23/2025 1:35 PM [facility] Hemoglobin 12.6(L) 13.5 - 17.5 g/dL LAB HEMETOLOGY METHOD 04/23/2025 1:35 PM [facility] LAB Hematocrit 38.0(L) 42.0 - 54.0 % LAB HEMETOLOGY METHOD 04/23/2025 1:35 PM [facility] LAB MCV 89.2 79.0 - 98.0 FL LAB HEMETOLOGY METHOD 04/23/2025 1:35 PM [facility] LAB MCH 29.6 27.0 - 32.0 pcg LAB HEMETOLOGY METHOD 04/23/2025 1:35 PM [facility] LAB MCHC 33.2 32.0 - 37.0 g/dL LAB HEMETOLOGY METHOD 04/23/2025 1:35 PM [facility] RDW 13.2 11.0 - 15.0 % LAB HEMETOLOGY METHOD 04/23/2025 1:35 PM [facility] Platelets 345 130 - 400 K/mcL LAB HEMETOLOGY METHOD 04/23/2025 1:35 PM [facility] LAB MPV 10.0 7.0 - 11.0 FL LAB HEMETOLOGY METHOD 04/23/2025 1:35 PM [facility] NRBC 0.0 <1.0 % LAB HEMETOLOGY METHOD 04/23/2025 1:35 PM [facility] NRBC Absolute 0.00 <0.10 K/mcL LAB HEMETOLOGY METHOD 04/23/2025 1:35 PM [facility] Blood Venous blood specimen / Unknown 04/23/2025 11:15 AM EDT 04/23/2025 1:22 PM EDT us Efrain Sequeira MD LAB BLOOD ORDERABLES Fin al Result [facility] ([facility]) [facility] [address] [place] [address], documented in this encounter Visit Diagnoses Diagnosis Malignant neoplasm of prostate (CMS/HCC V24, CMS/HCC V28) Malignant neoplasm of prostate documented in this encounter Care Teams Weight Shifter Relationship Specialty Start Date End Date Physician, No Pcp PCP - General 01/06/25 documented as of this encounter
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
[2025-06-04 18:04] LABS: Hematocrit 38.7 % (42.0-52.0); Hemoglobin 13.1 g/dl (14.0-18.0); Mean Corpuscular HGB Conc 33.9 g/dl (31.0-36.0); Mean Corpuscular Hemoglobin 30.3 pg (27.0-33.0); Mean Corpuscular Volume 89.6 fL (80.0-98.0); NRBC Abs Auto 0.000 X10*3/uL (0.0-0.012); NRBC Pct Auto 0.0 /100WBC (0.0-0.2); Platelet Count 254 X10*3/uL (160-400); Red Blood Count 4.32 X10*6/uL (4.60-5.80); White Blood Count 7.6 X10*3/uL (4.8-10.8)
[2025-06-04 18:14] LABS: Anion Gap 12 (12-20); Blood Urea Nitrogen 21 mg/dL (9-16); Calcium 8.4 mg/dL (8.4-10.2); Carbon Dioxide 23 mmol/L (22-29); Chloride 106 mmol/L (96-108); Estimated Glomerular Filt Rate 53; Potassium 4.4 mmol/L (3.3-5.1); Sodium 137 mmol/L (135-145)
== END 2025-06-04 13:48 | disposition home or self-care (01) ==
LOC: HO.HKASLDS 13:47
PROVIDERS: Visit Provider Internal Medicine Hypertension Specialist
DX: N18.9 Chronic kidney disease, unspecified (principal)
CPT/HCPCS: 36415; 80048; 85027

== ENCOUNTER 2025-06-11 08:35 | Outpatient (AMB) | payer BC, SELFPAY ==
[2025-06-11 08:38] VITALS: BP 122/70; BMI 29.3
--- NOTE | 2025-06-11 08:38 | HO.NEPHOV ---
Vital Signs 06/11/25 08:38 Height 5 ft 5 in Weight 176 lb BMI 29.3 BP 122/70 Blood Pressure Location Lt brachial Position Sitting Intake Visit Reasons: follow up w labs-LVM Area Counselor Required: No Accompanied by: Spouse Allergies No Known Allergies (No Known Allergies*) Allergy (Verified 06/11/25 08:42) Medication List - Last Reconciled 06/11/25 by Aden Mckee MD aspirin 81 mg PO BEDTIME atorvastatin 80 mg PO BEDTIME dulaglutide (Trulicity) 4.5 mg subcut QWEEK empagliflozin (Jardiance) 25 mg PO QAM metformin ER 500 mg PO DAILY metoprolol succinate ER 25 mg PO BEDTIME HPI Comments Details: . Roberto Carlos is a pleasant man referred for elevated serum creatinine. In 02/19/2024 serum creatinine was 1.4 mg/dL with a EGFR of 51 mL/minute. In the past serum creatinine was 1.3 mg/dL in December and in 2022 serum creatinine was 0.8 mg/dL. There has been no new medications added in the recent times. He has been on irbesartan 75 mg for the last several years. Does not take any NSAIDs. Overall blood pressure has been well controlled. No hypotensive episodes He has a history of diabetes mellitus and recent A1c was 7.8%. He is currently on Januvia metformin and Jardiance. Recent urine studies did not reveal any significant proteinuria. He has no urinary symptoms other than increased frequency. No polyuria polydipsia. He has been on tamsulosin for quite some time but does not have a history of BPH. If he has a history of coronary artery disease and underwent a stent placement back in 2004. In 2020 he had a defibrillator inserted. He has a history of smoking more than 1 pack per day. He quit smoking in 2004. Currently smoking very few cigarettes. No history of any alcohol abuse. There is a strong family history of coronary disease. No family history of kidney disease. 04/03/2024. Roberto Carlos is here for follow-up. Underwent a workup as outlined. Recent creatinine was 1.56. Twenty-four urine collection did not reveal any significant proteinuria. Renal ultrasonogram was done It is not reported yet. I reviewed the images. He is having increased urinary frequency and says that this has been going on for a year. 05/23/24 Seen by for bradley hydro Underwent CT scan Waiting for Cysto No nichols catheter yet ? 07/25/24 s/p Cysto and nichols; Removed on 12/04/2024. Recently seen by Urology. They made an urgent appointment for follow-up regarding CKD in further treatment options 05/07/25 The patient is a 65-year-old male presenting with the management of chronic conditions including hypertension, diabetes mellitus, and chronic kidney disease. The patient underwent prostate surgery on March 31 at [facility], performed by Dr. Garzon from [facility]. Post-surgery, the patient reports improved urination with less frequency and better sleep, although some incontinence persists. The patient has a history of hypertension, currently managed with irbesartan and metoprolol, but recent weight loss of 15 pounds has led to episodes of lightheadedness due to low blood pressure. The blood pressure was noted to drop to 80/50 mmHg upon standing, prompting a reduction in antihypertensive medication. Diabetes mellitus is managed with metformin, Jardiance, and Trulicity, with recent blood glucose levels at 6.9% and a noted weight loss of 15 pounds. The patient reports good control of blood sugar levels. Chronic kidney disease was noted with worsening kidney function on March 31, but recent labs are pending to assess current status. The patient is advised to maintain hydration to support kidney function. The patient admits to smoking occasionally, which may impact overall health and chronic conditions. The prostate tissue revealed low-grade malignancy and is currently being worked up for the same. 06/11/25 No further lightheadedness Off Irbesartan No incontinence [facility] Medical History Post covid-19 condition, unspecified Tobacco abuse Diabetes Obese Ischemic cardiomyopathy Hyperlipidemia associated with type 2 diabetes mellitus Ventricular tachycardia Myocardial infarction CAD (coronary artery disease) COPD (chronic obstructive pulmonary disease) Sleep apnea Surgical History History of prostate surgery History of automatic internal cardiac defibrillator (AICD) Hx of heart artery stent Hx of neck surgery Hx of foot surgery Hx of endoscopy History of colonoscopy Family History Father Hx of cancer of lung History of heart attack Mother History of cancer Brother Hx of type 1 diabetes mellitus Hx of bladder cancer History of prostate cancer Sister Hx of breast cancer Sister History of lung or bronchial cancer Social History Are you a primary primary care physician to a significant other at home: No Do you presently have visiting nurse or other home services: No Alcohol intake: current Alcohol intake frequency: a few times a month Patient Tobacco Use Status: Current everyday Tobacco user Tobacco use type: Cigarette Cigarettes Per Day: 10 Physical Exam Vital Signs: Last Vital Signs BP 122/70 06/11/25 08:38 BMI result Body Mass Index 29.3 Results Reviewed Nephrology Results: Hgb, (14.0-18.0) 13.1 g/dl L 06/04/25 WBC, (4.8-10.8) 7.6 X10*3/uL 06/04/25 Plt Count, (160-400) 254 X10*3/uL 06/04/25 Sodium, (135-145) 137 mmol/L 06/04/25 Potassium, (3.3-5.1) 4.4 mmol/L 06/04/25 Chloride, (96-108) 106 mmol/L 06/04/25 Carbon Dioxide, (22-29) 23 mmol/L 06/04/25 BUN, (9-16) 21 mg/dL H 06/04/25 Creatinine, (0.5-1.4) 1.35 mg/dL 06/04/25 Calcium, (8.4-10.2) 8.4 mg/dL Δ 06/04/25 Urine Protein, (Neg-Trace) Negative mg/dL 12/03/24 Renal US 03/18/24 Assessment & Plan Assessment & Plan (1) CKD (chronic kidney disease): Code(s): N18.9 - Chronic kidney disease, unspecified Category: Medical (2) Hydronephrosis: Code(s): N13.30 - Unspecified hydronephrosis Category: Medical (3) BPH loc w urin obs/LUTS: Code(s): N40.1 - Benign prostatic hyperplasia with lower urinary tract symptoms Category: Medical (4) Urinary retention: Code(s): R33.9 - Retention of urine, unspecified Category: Medical (5) Neurogenic bladder: Code(s): N31.9 - Neuromuscular dysfunction of bladder, unspecified Category: Medical Plan . Roberto Carlos is a 65-year-old man with a history of longstanding diabetes mellitus and coronary disease with a recent elevation serum creatinine. JORDYN due to obstructive uropathy. Next answered post prostate surgery. He had mild hyperkalemia prior to surgery. Repeat labs are pending. He has no significant proteinuria. Twenty-four urine collection did not reveal any proteinuria Recent urine sediments were bland. No reason to believe that he has any active glomerulonephritis or interstitial disease. Plan Keep current medications for now. Agree with Jardiance for cardiorenal protection. . Continue tamsulosin Encouraged to stay on low-sodium diet and increase p.o. fluid intake. Continue to avoid nephrotoxic agents including NSAIDs. Blood pressure the low today. Discontinue Irbesartan 75 mg Increase p.o. fluid intake. Recheck renal panel in the next 2 weeks. 06/11/25 Cr back to baseline BP well controlled No need for Irbesartan Shall follow PRN Orders: Orders Basic Metabolic Panel 4 Months N18.9 - Chronic kidney disease, unspecified Coding Level of Care Code Est Pt Level 4 (15480) Diagnoses CKD (chronic kidney disease) N18.9 Hydronephrosis N13.30 BPH loc w urin obs/LUTS N40.1 Urinary retention R33.9 Neurogenic bladder N31.9
--- OUTSIDE RECORDS SUMMARY | 2025-06-11 09:55 | XMS_ITS | Encounter Summary ---
Author Organization [facility] Address [address] [place] [address] Care Team Providers Care Wood Tank Erector Name Role Phone Physician, No Pcp Primary Care Provider Unavaila ble Encounter Details Date Type Department Care Team (Late st Contact Info) Description 04/23/2025 Lab Requisition [facility] - Main Lab [address] [facility] [place] [address] Efrain Sequeira MD [address] [place] [address] Malignant neoplasm of prostate (CMS/HCC V24, CMS/HCC [...] AM EDT) WBC 10.1 4.8 - 10.8 K/[facility] LAB HEMETOLOGY METHOD 04/23/2025 1:35 PM [facility] RBC 4.30(L) 4.50 - 5.50 M/mcL LAB HEMETOLOGY METHOD 04/23/2025 1:35 PM [facility] Hemoglobin 12.6(L) 13.5 - 17.5 g/dL LAB HEMETOLOGY METHOD 04/23/2025 1:35 PM [facility] Hematocrit 38.0(L) 42.0 - 54.0 % LAB HEMETOLOGY METHOD 04/23/2025 1:35 PM [facility] MCV 89.2 79.0 - 98.0 FL LAB HEMETOLOGY METHOD 04/23/2025 1:35 PM [facility] MCH 29.6 27.0 - 32.0 pcg LAB HEMETOLOGY METHOD 04/23/2025 1:35 PM [facility] MCHC 33.2 32.0 - 37.0 g/dL LAB HEMETOLOGY METHOD 04/23/2025 1:35 PM [facility] RDW 13.2 11.0 - 15.0 % LAB HEMETOLOGY METHOD 04/23/2025 1:35 PM [facility] Platelets 345 130 - 400 K/mcL LAB HEMETOLOGY METHOD 04/23/2025 1:35 PM [facility] MPV 10.0 7.0 - 11.0 FL LAB HEMETOLOGY METHOD 04/23/2025 1:35 PM [facility] NRBC 0.0 <1.0 % LAB HEMETOLOGY METHOD 04/23/2025 1:35 PM [facility] NRBC Absolute 0.00 <0.10 K/mcL LAB HEMETOLOGY METHOD 04/23/2025 1:35 PM [facility] Blood Venous blood specimen / Unknown 04/23/2025 11:15 AM EDT 04/23/2025 1:22 PM EDT us Efrain Sequeira MD LAB BLOOD ORDERABLES Fin al Result [facility] ([facility]) [facility] [address] [place] [address], documented in this encounter Visit Diagnoses Diagnosis Malignant neoplasm of prostate (CMS/HCC V24, CMS/HCC V28) Malignant neoplasm of prostate documented in this encounter Care Teams Wood Tank Erector Relationship Specialty Start Date End Date Physician, No Pcp PCP - General 01/06/25 documented as of this encounter
--- OUTSIDE RECORDS SUMMARY | 2025-06-11 09:55 | XMS_ITS | Encounter Summary ---
Author Organization [facility] Address [address] [place] [address] Care Team Providers Care Undercover Operator Name Role Phone Physician, No Pcp Primary Care Provider Unavaila ble Encounter Details Date Type Department Care Team (Late st Contact Info) Description 01/06/2025 Lab Requisition [facility] - Main Lab [address] [facility] [place] [phone] Efrain Sequeira MD [address] [place] [address] Benign prostatic hyperplasia with lower urinary tract [...] mmol/L LAB CHEMISTRY METHOD 01/06/2025 2:44 PM [facility] Potassium 4.8 3.5 - 5.5 mmol/L LAB CHEMISTRY METHOD 01/06/2025 2:44 PM [facility] Chloride 110 96 - 110 mmol/L LAB CHEMISTRY METHOD 01/06/2025 2:44 PM [facility] CO2 25 21 - 32 mmol/L LAB CHEMISTRY METHOD 01/06/2025 2:44 PM [facility] Anion Gap 4 3 - 11 LAB CHEMISTRY METHOD 01/06/2025 2:44 PM [facility] Glucose 107(H) 70 - 100 mg/dL LAB CHEMISTRY METHOD 01/06/2025 2:44 PM [facility] BUN 34(H) 5 - 25 mg/dL LAB CHEMISTRY METHOD 01/06/2025 2:44 PM [facility] Creatinine 1.66(H) 0.70 - 1.30 mg/dL LAB CHEMISTRY METHOD 01/06/2025 2:44 PM [facility] eGFR 46(L) >=60 mL/min/1. 73m2 LAB CHEMISTRY METHOD 01/06/2025 2:44 PM [facility] Comment:Calculation based on the Chronic Kidney Disease Epidemiology Collaboration (CKD-EPI) equation refit without adjustment for race. BUN/Creatinine Ratio 20.5 LAB CHEMISTRY METHOD 01/06/2025 2:44 PM [facility] Calcium 9.4 8.5 - 10.5 mg/dL LAB CHEMISTRY METHOD 01/06/2025 2:44 PM [facility] Blood Venous blood specimen / Unknown 01/06/2025 11:13 AM EDT 01/06/2025 1:38 PM EDT us Efrain Sequeira MD LAB BLOOD ORDERABLES Fin al Result [facility] [address] [place] [address], * (ABNORMAL) Complete blood count (01/06/2025 11:13 [...] pcg LAB HEM[facility]OLOG[facility] M[facility]C 34.1 32.0 - 37.0 g/dL LAB HEMETOLOGY METHOD 01/06/2025 2:[address] [facility] RDW 12.9 11.0 - 15.0 % LAB HEMETOLOGY METHOD 01/06/2025 2:[address] [facility] Platelets 280 130 - 400 K/mcL LAB HEMETOLOGY METHOD 01/06/2025 2:[facility] MPV 10.2 7.0 - 11.0 [...] ORDERABLES Fin al Result Performing Organization Address [facility] Co de Phone Number [facility] [address] [place] [address], [place] [phone] * Prostate specific antigen diagnostic (01/06/2025 11:13 [...] ORDERABLES Fin al Result Performing Organization Address City/[facility]/ZIP Co de Phone Number [facility] [address] [place] [address], [place] [phone] documented in this encounter Visit Diagnoses Diagnosis Benign prostatic hyperplasia with lower urinary tract symptoms Encounter for preprocedural laboratory examination documented in this encounter Care Teams Undercover Operator Relationship Specialty Start Date End Date Physician, No Pcp PCP - General 01/06/25 documented as of this encounter
--- OUTSIDE RECORDS SUMMARY | 2025-06-11 09:55 | XMS_ITS | Clinical Summary ---
Author Organization [address] [facility] Address [address] [place] [address] Phone Care Team Providers Care Mat Making Machine Tender Name Role Phone Physician, No Pcp Primary [...] Department Care Team Description 04/23/2025 Lab Requisition [facility] - Main Lab [address] [facility] [place] [address] Efrain Sequeira MD Malignant neoplasm of prostate ([facility] V24, [facility] V28) 03/31/2025 2:26 PM EDT Anesthesia Event [facility] OR [address] [place] [phone] Gumaro Hameed MD Freeman, Katharine O, MD 03/31/2025 1:30 PM EDT - 03/31/2025 3:00 PM EDT Surgery [facility] OR [address] [place] [phone] Efrain Sequeira MD TRANSURETHRAL RESECTION OF PROSTATE [58035 (CPT )] 03/31/2025 12:04 PM EDT - 04/01/2025 11:47 AM EDT Hospital Encounter [facility] [address] [place] [phone] Efrain Sequeira MD Bukalo, Nermina, MD Santoyo-Pacheco, [...] History Medical History Date Comments Diabetes mellitus ([facility] V24, [facility] V28) Hyperlipidemia Hypertension Heart disease Myocardial infarction ([facility] V24, [facility] V28) COPD (chronic obstructive pulmonary disease) ([facility] V24, [facility] V28) Sleep apnea CKD (chronic kidney disease) BPH (benign prostatic hyperplasia) Arrhythmia HL (hearing loss) Fractures Joint pain Ischemic cardiomyopathy with implantable cardioverter-defibrillator (ICD) VT (ventricular tachycardia) ([facility] V24, [facility] V28) Social History Tobacco Use Types [...] 11:15 AM EDT Malignant neoplasm of prostate ([facility] V24, [facility] V28) POCT GLUCOSE BLOOD Routine 04/01/2025 10:58 [...] ENDOTRACHEAL(NO CHARGE) Routine 03/31/2025 2:43 PM EDT AR TURP ELECTROSURGICAL INCL CONTROL POSTOP BLEEDING CMPLT [...] LAB HEMETOLOGY METHOD 04/23/2025 1:35 PM EDT [facility] RBC 4.30(L) 4.50 - 5.50 M/mcL LAB HEMETOLOGY METHOD 04/23/2025 1:35 PM EDT [facility] Hemoglobin 12.6(L) 13.5 - 17.5 g/dL LAB HEMETOLOGY METHOD 04/23/2025 1:35 PM EDT [facility] Hematocrit 38.0(L) 42.0 - 54.0 % LAB HEMETOLOGY METHOD 04/23/2025 1:35 PM EDT [facility] MCV 89.2 79.0 - 98.0 FL LAB HEMETOLOGY METHOD 04/23/2025 1:35 PM EDT [facility] MCH 29.6 27.0 - 32.0 pcg LAB HEMETOLOGY METHOD 04/23/2025 1:35 PM EDT [facility] MCHC 33.2 32.0 - 37.0 g/dL LAB HEMETOLOGY METHOD 04/23/2025 1:35 PM EDT [facility] RDW 13.2 11.0 - 15.0 % LAB HEMETOLOGY METHOD 04/23/2025 1:35 PM EDT [facility] Platelets 345 130 - 400 K/mcL LAB HEMETOLOGY METHOD 04/23/2025 1:35 PM EDT [facility] MPV 10.0 7.0 - 11.0 FL LAB HEMETOLOGY METHOD 04/23/2025 1:35 PM EDT [facility] NRBC 0.0 <1.0 % LAB HEMETOLOGY METHOD 04/23/2025 1:35 PM EDT [facility] NRBC Absolute 0.00 <0.10 K/mcL LAB HEMETOLOGY METHOD 04/23/2025 1:35 PM EDT [facility] Blood Venous blood specimen / Unknown 04/23/2025 11:15 AM EDT 04/23/2025 1:22 PM EDT us Efrain Sequeira MD LAB BLOOD ORDERABLES Fin al Result [facility] [address] [place] [address], * (ABNORMAL) POCT Glucose, blood (04/01/2025 10:58 AM EDT) Only the most recent of5 resultswithin the time period is included. Pathologist [facility] Glucose POCT 257(H) 70 - 100 mg/dL 04/01/2025 10:59 AM [facility] Blood Capillary blood specimen / Unknown 04/01/2025 10:58 AM EDT 04/01/2025 11:01 AM EDT Rosalio Elizabeth MD LAB POINT OF CARE TE ST DOCKED DEVICE UNSOLICITED RESULTS Final Result [facility] [address] [place] [address], * (ABNORMAL) Basic metabolic panel (04/01/2025 6:12 AM EDT) Only the most recent of2 resultswithin the time period is included. [facility] Sodium 137 133 - 145 mmol/L LAB CHEMISTRY METHOD 04/01/2025 7:07 AM [facility] Potassium 5.0 3.5 - 5.5 mmol/L LAB CHEMISTRY METHOD 04/01/2025 7:07 AM [facility] Chloride 111(H) 96 - 110 mmol/L LAB CHEMISTRY METHOD 04/01/2025 7:07 AM [facility] CO2 21 21 - 32 mmol/L LAB CHEMISTRY METHOD 04/01/2025 7:07 AM [facility] Anion Gap 5 3 - 11 LAB CHEMISTRY METHOD 04/01/2025 7:07 AM [facility] Glucose 197(H) 70 - 100 mg/dL LAB CHEMISTRY METHOD 04/01/2025 7:07 AM [facility] BUN 30(H) 5 - 25 mg/dL LAB CHEMISTRY METHOD 04/01/2025 7:07 AM [facility] Creatinine 2.05(H) 0.70 - 1.30 mg/dL LAB CHEMISTRY METHOD 04/01/2025 7:07 AM EDT [facility] eGFR 35(L) >=60 mL/min/1. 73m2 LAB CHEMISTRY METHOD 04/01/2025 7:07 AM EDT [facility] Comment:Calculation based on the Chronic Kidney Disease Epidemiology Collaboration (CKD-EPI) equation refit without adjustment for race. BUN/Creatinine Ratio 14.6 LAB CHEMISTRY METHOD 04/01/2025 7:07 AM EDT [facility] Calcium 8.2(L) 8.5 - 10.5 mg/dL LAB CHEMISTRY METHOD 04/01/2025 7:07 AM EDT [facility] Blood Venous blood specimen / Unknown Venipuncture / Unknown 04/01/2025 6:12 AM EDT 04/01/2025 6:30 AM EDT Kenrick Young MD LAB BLOOD ORDERABLES Final Res ult [facility] [address] [place] [address], [place] [phone] * Light blue tube (03/31/2025 6:13 PM EDT) Pathologist [facility] Extra Tube Hold for add-ons. 03/31/2025 8:01 PM EDT [facility] Comment:Auto resulted. Blood Venous blood specimen / Unknown 03/31/2025 6:13 PM EDT 03/31/2025 6:36 PM EDT Kenrick Young MD LAB BLOOD ORDERABLES Final Res ult [facility] [address] [place] [address], [place] [phone] * Tissue exam (03/31/2025 3:08 PM EDT) Addendum Block A3 was sent to [email or web address] (CLIA [id number]), [place], [place] for Decipher Prostatic Biopsy Genomic Observatory Director at the requets of Dr. Sequeira. Their diagnosis is as follows: DECIPHER GENOMIC RISK RESULTS: 0.99 GENOMIC RISK IS: HIGH Signed by Felix Choi MD Report date: 05/16/2025 (Full report on file) 1:52 PM EDT [facility] Addendum electronically signed by [...] the diagnosis by Dr. Richar Barrett via [employer]! application on 04/03/25 at 10:37 AM. 1:52 PM EDT [facility] Gross Description A. Prostate, turp: Labeled prostate . Received in formalin is a 43 g, 9 x 8 x 2 cm aggregate of irregular perez-pink rubbery cauterized tissue fragments. No discrete yellow discolored areas or mass lesions are identified. Filament Shaper sections (approximately 20% of the specimen) are submitted in six cassettes, multiple pieces each. ALFRED 1:52 PM EDT [facility] Disclaimer NOTE: The immunohistochemical tests and in situ hybridization tests were developed and their performance characteristics were determined by [facility]. They have not been cleared [...] fixed and paraffin embedded. 1:52 PM EDT [facility] Tissue Prostate / Unknown 3:08 PM EDT 04/01/2025 5:37 AM EDT Efrain Sequeira MD LAB PATHOLOGY ORDERABLES Edited Result - Final [facility]) [facility] [address] [place] [address], [place] [phone] * TH AN ENDOTRACHEAL(NO CHARGE) (03/31/2025 2:43 [...] GEMUSE QTc 416 ms GEMUSE P Wave [place] 48 degrees GEMUSE R [place] 8 degrees GEMUSE T [place] 4 degrees GEMUSE ECG Interpretation Normal sinus [...] currently active code status orders. Care Teams Mat Making Machine Tender Relationship Specialty Start Date End Date Physician, No Pcp PCP - General 01/06/25
== END 2025-06-11 08:55 | disposition home or self-care (01) ==
LOC: HO.HKAS 08:35
PROVIDERS: PCP Nurse Practitioner Family; Visit Provider Internal Medicine Hypertension Specialist
DX: N18.9 Chronic kidney disease, unspecified (principal); N13.30 Unspecified hydronephrosis; N40.1 Benign prostatic hyperplasia with lower urinary tract symptoms; R33.9 Retention of urine, unspecified; N31.9 Neuromuscular dysfunction of bladder, unspecified
CPT/HCPCS: 99214